=== PATIENT | female | born 1965 | race Caucasian/White ===

== ENCOUNTER 2021-03-29 12:02 | Observation (INO) ==
[2021-03-29 12:34] LABS: Basophils # (auto) 0.02 K/uL (0-0.2); Basophils % (auto) 0.3 %; Eosinophils # (auto) 0.11 K/uL (0-0.5); Eosinophils % (auto) 1.6 %; Hematocrit (blood only) 33.3 % (37-47); Hemoglobin 10.9 g/dL (12.0-16.0); Immature Granulocytes # (auto) 0.02 K/uL (0.00-0.02); Immature Granulocytes % (auto) 0.3 %; Lymphocytes # (auto) 1.83 K/uL (1.2-3.4); Lymphocytes % (auto) 26.1 %; Mean Corpuscular Hemoglobin 21.5 pg (25-34); Mean Corpuscular Hgb Conc 32.7 g/dL (32-36); Mean Corpuscular Volume 65.8 fL (80-100); Mean Platelet Volume 10.3 fL (7.4-10.4); Monocytes # (auto) 0.51 K/uL (0.11-0.59); Monocytes % (auto) 7.3 %; Neutrophils # (auto) 4.52 K/uL (1.4-6.5); Neutrophils % (auto) 64.4 %; Platelet Count 274 K/uL (130-400); RDW Coefficient of Variation 16.1 % (11.5-14.5); RDW Standard Deviation 37.5 fL (36.4-46.3); Red Blood Count 5.06 M/uL (4.2-5.4); White Blood Count 7.01 K/uL (4.8-10.8)
[2021-03-29 12:54] LABS: Hypochromasia Present; Microcytosis Present; Poikilocytosis Present; Target Cells 1+
[2021-03-29 12:58] LABS: Alanine Aminotransferase 73 U/L (12-78); Albumin Globulin Ratio 1.2 (0.9-2); Albumin Level 4.1 gm/dl (3.4-5.0); Alkaline Phosphatase 108 U/L (45-117); Aspartate Aminotransferase 42 U/L (15-37); BUN Creatinine Ratio 18.6 (10-20); Bilirubin,Total 1.1 mg/dl (0.2-1); Blood Urea Nitrogen 11 mg/dl (7-18); Calcium 9.6 mg/dl (8.5-10.1); Carbon Dioxide 23 mmol/L (21-32); Chloride 106 mmol/L (98-107); Creatinine Clr Calc Pharmacy 105.3 ml/min; Est GFR (Non-African American) 105.2 ml/min; Globulin 3.3 gm/dl (2.5-4.0); Glucose 83 mg/dl (70-99); Lipase 60 U/L (73-393); Sodium 139 mmol/L (136-145); Total Protein 7.4 gm/dl (6.4-8.2); Troponin I < 0.015 ng/ml (0-0.045)
[2021-03-29] MEDS ORDERED: ONDANSETRON INJ 2 MG/ML 2 ML VIAL IV STA (15:22)
--- NOTE | 2021-03-29 15:24 | Emergency Department Note ---
History of Present Illness General Chief complaint: Chest Pain Stated complaint: CHEST PAIN,ARM PAIN--EKG TEST AND STRESS TEST REQ Time Seen by Provider: 03/29/21 15:10 History of Present Illness Maximum Pain Intensity: 2 This is a 55-year-old female with a past medical history significant for that of thalassemia trait, recent cholecystectomy that presents to the emergency department via private vehicle with complaints of"chest pain, left arm pain, abdominal pain". The patient states that she has had vomiting over the past few days. She has been on a different diet secondary to her cholecystectomy. She notes a decrease in red meat and dark greens. She states that yesterday she felt as though she was kicked in her chest followed by left arm pain. She initially presented here however not that there was a very long wait time and presented to [facility] and had an EKG and then followed up this morning with her PCP. She was referred here for further evaluation and management. The patient notes that she has had difficulty eating over the past three days. She also notes that she thinks she may have had a heart attack yesterday around 3-4 PM when she felt like she was kicked in the chest. No chest pain at this time. Home Medications Medication Instructions Recorded Confirmed Type sertraline 100 mg tablet 100 mg PO QAM 01/26/21 03/29/21 History albuterol sulfate 90 mcg/actuation 2 puff INHALATION Q6H PRN 03/29/21 03/29/21 History aerosol inhaler celecoxib 200 mg capsule 200 mg PO DAILY 03/29/21 03/29/21 History Allergies Allergy/AdvReac Type Severity Reaction Status Date / Time ceftriaxone Allergy Intermediate RASH Verified 01/31/21 05:47 Past Med/Surg History Medical History Anxiety Beta thalassemia trait Seen by mina 10/25/20- Hgb stable since 2005 - was referred to [facility] for further evaluation if fatigue and chronic pain related to beta thalassemia trait Cervical cancer Chronic anemia Chronic obstructive pulmonary disease Polyarthralgia Stroke 15 yrs ago, incidental finding on MRI Surgical History History of cholecystectomy Hx of section Hx of laparoscopy ovarian cyst removal Hx of tubal ligation Social History Smoking Status: Former smoker Tobacco Type: Cigarettes Smoking End Date: 12/2020. Had smoked 1ppd x 40 years; Second Hand Exposure: No; Hx Alcohol Use: No Hx Substance Use: Yes Non-Prescribed Medications: Marijuana Last Used Substance Other:: medical hermila Preferred Language: Slovak Communication Ability: Effective Beliefs That Will Affect Care: None Current Living Situation: Alone and Family Feels Safe at Home: Yes Review of Systems A total of 10 systems reviewed and were otherwise negative Physical Exam Vital Signs Vital Signs - 24 hr 03/29/21 12:02 03/29/21 12:05 03/29/21 12:09 Temperature 36.8 C Temperature Source Skin Pulse Rate 83 70 Pulse Rate [Apical] Respiratory Rate 18 18 Blood Pressure 117/72 Blood Pressure [Right Arm] Blood Pressure Mean 87 Blood Pressure Mean [Right Arm] Pulse Oximetry 98 98 Oxygen Delivery Method Room Air Room Air Sepsis Recent Fever Within 48 Hours No Sepsis New/Unexplained Change in Mental Status No Sepsis Action Taken by Nursing No Action Required 03/29/21 15:26 Temperature 37 C Temperature Source Oral Pulse Rate Pulse Rate [Apical] 70 Respiratory Rate 18 Blood Pressure Blood Pressure [Right Arm] 125/95 Blood Pressure Mean Blood Pressure Mean [Right Arm] 105 Pulse Oximetry 98 Oxygen Delivery Method Room Air Sepsis Recent Fever Within 48 Hours Sepsis New/Unexplained Change in Mental Status Sepsis Action Taken by Nursing VITAL SIGNS - Vital signs and nursing notes were reviewed. Stable and afebrile. GENERAL - 55-year-old female appearing her stated age who is in no acute distress. Communicates well with provider and answers questions appropriately. SKIN - Without rashes. No meningeal or particular rash. HEAD - NC/AT. EYES - PERRL with EOMI bilaterally. Sclera anicteric. EARS - No deformities of external structures noted on gross examination bilaterally. NOSE - Midline and without cyanosis. No epistaxis or purulent drainage noted. MOUTH/OROPHARYNX - Without perioral cyanosis. NECK - Neck with FROM. . No nuchal rigidity. LUNGS - Chest wall symmetric without accessory muscle use, intercostals retractions, or central cyanosis. Normal vesicular breath sounds CTA B/L. No wheezes, rales, or rhonchi appreciated. CARDIAC - RRR with S1/S2. No murmur, rubs, or gallops appreciated. ABDOMEN - Abdominal contour normal without pulsations or visible masses. BS normoactive all four quadrants. Diffuse abdominal tenderness. Abdomen is soft and non-rigid. No palpable masses, hepatosplenomegaly, or ascites noted. EXTREMITIES - No clubbing or peripheral cyanosis. +5/5 strength noted in UE/LE bilaterally. NEUROLOGIC - Cranial nerves II through XII grossly intact. PSYCH - A&Ox3 and cooperates fully with examiner. Pt is very pleasant and interacts well with examiner. Course Administered Medications Discontinued Medications Ioversol (Optiray 320 125ml) 115 ml IV ONCE ONE Stop: 03/29/21 15:53 Last Admin: 03/29/21 15:52 Dose: 115 ml Documented by: [id number] Ondansetron HCl (Ondansetron Inj 2 Mg/Ml 2 Ml Vial) 4 mg IV NOW STA Stop: 03/29/21 15:23 Last Admin: 03/29/21 15:57 Dose: 4 mg Documented by: [id number] Medical Decision Making Laboratory Data Result diagrams: 03/29/21 12:20 03/29/21 12:20 Lab Results 03/29/21 03/29/21 03/29/21 Range/Units 12:20 12:20 12:20 WBC 7.01 (4.8-10.8) K/uL RBC 5.06 (4.2-5.4) M/uL Hgb 10.9 L (12.0-16.0) g/dL Hct 33.3 L (37-47) % MCV 65.8 L (80-100) fL MCH 21.5 L (25-34) pg MCHC 32.7 (32-36) g/dL RDW Std Deviation 37.5 (36.4-46.3) fL RDW Coeff of Tony 16.1 H (11.5-14.5) % Plt Count 274 (130-400) K/uL MPV 10.3 (7.4-10.4) fL Immature Gran % (Auto) 0.3 % Neut % (Auto) 64.4 % Lymph % (Auto) 26.1 % Gillespie % (Auto) 7.3 % Eos % (Auto) 1.6 % Baso % (Auto) 0.3 % Neut # (Auto) 4.52 (1.4-6.5) K/uL Lymph # (Auto) 1.83 (1.2-3.4) K/uL Gillespie # (Auto) 0.51 (0.11-0.59) K/uL Eos # (Auto) 0.11 (0-0.5) K/uL Baso # (Auto) 0.02 (0-0.2) K/uL Immature Gran # (Auto) 0.02 (0.00-0.02) K/uL Hypochromasia Present Poikilocytosis Present Microcytosis Present Target Cells 1+ APTT 27.0 (21.0-31.0) Seconds PTT Ratio 1.0 Sodium 139 (136-145) mmol/L Potassium 4.0 (3.5-5.1) mmol/L Chloride 106 (98-107) mmol/L Carbon Dioxide 23 (21-32) mmol/L Anion Gap 9.0 (3-11) BUN 11 (7-18) mg/dl Creatinine 0.58 L (0.6-1.2) mg/dl Est Cr Clr Drug Dosing 105.3 ml/min Est GFR ( Amer) 122.0 ml/min Est GFR (Non-Af Amer) 105.2 ml/min BUN/Creatinine Ratio 18.6 (10-20) Glucose 83 (70-99) mg/dl Calcium 9.6 (8.5-10.1) mg/dl Total Bilirubin 1.1 H (0.2-1) mg/dl AST 42 H (15-37) U/L ALT 73 (12-78) U/L Alkaline Phosphatase 108 (45-117) U/L Troponin I < 0.015 (0-0.045) ng/ml Total Protein 7.4 (6.4-8.2) gm/dl Albumin 4.1 (3.4-5.0) gm/dl Globulin 3.3 (2.5-4.0) gm/dl Albumin/Globulin Ratio 1.2 (0.9-2) Lipase 60 L (73-393) U/L HCG, Qual (Negative) Urine Color Urine Appearance (Clear) Urine pH (4.5-7.5) Ur Specific Brewster (1.000-1.030) Urine Protein (Negative) Urine Glucose (UA) (Negative) Urine Ketones (Negative) Urine Blood (Negative) Urine Nitrite (Negative) Urine Bilirubin (Negative) Urine Urobilinogen (Negative) Ur Leukocyte Esterase (Negative) COVID-19 Eval Order 03/29/21 03/29/21 03/29/21 Range/Units 15:27 16:09 16:29 WBC (4.8-10.8) K/uL RBC (4.2-5.4) M/uL Hgb (12.0-16.0) g/dL Hct (37-47) % MCV (80-100) fL MCH (25-34) pg MCHC (32-36) g/dL RDW Std Deviation (36.4-46.3) fL RDW Coeff of Tony (11.5-14.5) % Plt Count (130-400) K/uL MPV (7.4-10.4) fL Immature Gran % (Auto) % Neut % (Auto) % Lymph % (Auto) % Gillespie % (Auto) % Eos % (Auto) % Baso % (Auto) % Neut # (Auto) (1.4-6.5) K/uL Lymph # (Auto) (1.2-3.4) K/uL Gillespie # (Auto) (0.11-0.59) K/uL Eos # (Auto) (0-0.5) K/uL Baso # (Auto) (0-0.2) K/uL Immature Gran # (Auto) (0.00-0.02) K/uL Hypochromasia Poikilocytosis Microcytosis Target Cells APTT (21.0-31.0) Seconds PTT Ratio Sodium (136-145) mmol/L Potassium (3.5-5.1) mmol/L Chloride (98-107) mmol/L Carbon Dioxide (21-32) mmol/L Anion Gap (3-11) BUN (7-18) mg/dl Creatinine (0.6-1.2) mg/dl Est Cr Clr Drug Dosing ml/min Est GFR ( Amer) ml/min Est GFR (Non-Af Amer) ml/min BUN/Creatinine Ratio (10-20) Glucose (70-99) mg/dl Calcium (8.5-10.1) mg/dl Total Bilirubin (0.2-1) mg/dl AST (15-37) U/L ALT (12-78) U/L Alkaline Phosphatase (45-117) U/L Troponin I (0-0.045) ng/ml Total Protein (6.4-8.2) gm/dl Albumin (3.4-5.0) gm/dl Globulin (2.5-4.0) gm/dl Albumin/Globulin Ratio (0.9-2) Lipase (73-393) U/L HCG, Qual Negative (Negative) Urine Color Yellow Urine Appearance Clear (Clear) Urine pH 6.5 (4.5-7.5) Ur Specific Brewster 1.007 (1.000-1.030) Urine Protein Negative (Negative) Urine Glucose (UA) Negative (Negative) Urine Ketones 2+ H (Negative) Urine Blood Negative (Negative) Urine Nitrite Negative (Negative) Urine Bilirubin Negative (Negative) Urine Urobilinogen Negative (Negative) Ur Leukocyte Esterase Negative (Negative) COVID-19 Eval Order Covid19 at [facility] Imaging Data Radiologist's Impression: Abdomen/Pelvis CT 03/29/21 15:22 CT SCAN OF THE ABDOMEN AND PELVIS WITH IV CONTRAST CLINICAL HISTORY: Generalized abdominal pain. COMPARISON STUDY: Abdominal radiographs and ultrasound dated 01/02/2021. TECHNIQUE: Following the IV administration of 115 cc of Optiray 320, CT scan of the abdomen and pelvis is performed from the lung bases to the proximal femora. Images are reviewed in the axial, sagittal, and coronal planes. IV contrast was administered without complication. A dose lowering technique was utilized adhering to the principles of ALARA. FINDINGS: Lung bases: The heart is normal in size and without pericardial effusion. There are scattered calcified granulomas. The lung bases are otherwise clear. Liver: The contrast-enhanced liver is normal in size, contour, and attenuation. Fatty infiltration is seen adjacent to the falciform ligament. There is minimal central intrahepatic biliary ductal dilatation. The hepatic veins and portal veins are patent. Gallbladder: Surgically absent noting clips in the gallbladder fossa. Spleen: Normal in size and attenuation. There are scattered calcified granulomas. Pancreas: Unremarkable. Adrenal glands: Unremarkable. Kidneys: The contrast enhanced kidneys are normal in size and without hydronephrosis. The kidneys enhance symmetrically. Abdominal vasculature: The abdominal aorta is normal in course and caliber. Bowel: There is moderate colonic fecal retention. No bowel obstruction is seen liquid stool is seen in the right colon.. The appendix is not visualized. Peritoneum: There is no intraperitoneal free air or abdominal ascites. Lymphadenopathy: None. Pelvic viscera: The bladder wall appears circumferentially thickened. There is an approximately 6.5 x 7.5 x 7.5 cm heterogeneously enhancing mass lesion at the base of the uterus seen on image #307. The remainder of the uterus is normal in appearance. There is a 2.1 cm fat attenuation structure in the right pelvis with surrounding suture material. Skeletal structures: No lytic or blastic lesions are seen. IMPRESSION: 1. The bladder wall appears circumferentially thickened. Correlate with clinical findings and urinalysis. 2. There is a 7.5 cm heterogeneously enhancing mass lesion at the base of the uterus. This is pathologically indeterminant and may represent a large fibroid. Given the location, a cervical lesion is not excluded. Gynecology follow-up is recommended. 3. There is a 2.1 cm fat attenuation structure in the right pelvis with surrounding suture material. This may represent postoperative change. A fat- containing lesion such as dermoid is not excluded. Correlate with the patient's operative history. This should also be assessed at gynecology follow-up. 4. Liquid stool is noted in the right colon. Correlate for evidence of a diarrheal illness. 5. Moderate constipation. 6. Additional findings as above. ACT 112: Negative or not required by law. Electronically signed by: Mark Willis M.D. 03/29/2021 4:08 PM Chest CTA 03/29/21 15:22 CT angio chest PE protocol CT DOSE: 549.26 mGy.cm HISTORY: 55 years-old Female with chest pain. Acute chest pain with shortness of breath TECHNIQUE: Multiple CTA images of the chest were obtained after the intravenous administration of 115 ml Optiray. Coronal and sagittal MIPS were obtained from the axial data set and were submitted for review. All measurements were obtained according to NASCET criteria. A dose lowering technique was utilized adhering to the principles of ALARA. COMPARISON: CT abdomen and pelvis of same day, chest radiograph 03/08/2013 FINDINGS: CTA: The heart is normal in size. No pericardial effusion. Unremarkable thoracic aorta. The pulmonary artery is within normal limits. No filling defects identified to suggest thromboembolic disease. CT CHEST: Subcentimeter hypodense right thyroid nodules. Calcified mediastinal and hilar lymph nodes compatible with prior granulomatous disease. No pneumothorax, pleural effusion, airspace consolidation or overt pulmonary edema. Tiny subpleural blebs of the lung apices. Scattered calcified pulmonary granulomata. No suspicious pulmonary nodules or masses. The central airways are patent. Cholecystectomy. No acute process of the imaged upper abdomen. Unremarkable soft tissues. No acute fracture. IMPRESSION: 1. Unremarkable CTA of the chest. No pulmonary emboli. 2. Prior granulomatous disease. ACT 112: Negative or not required by law. The above report was generated using voice recognition software. It may contain grammatical, syntax or spelling errors. Electronically signed by: Miquel Rivas M.D. 03/29/2021 4:00 PM [facility] Narrative Patient was seen and evaluated as above in room in room B 12. Review was performed of nursing notes and vital signs. I did review pertinent previous visits and patient history. After obtaining a thorough history and physical examination the above work up was performed. Patient presents to us today with an episode yesterday of chest pain, left arm pain. No pain at the present time. Patient also notes vomiting over the past few days. She felt like she was kicked in the chest yesterday followed by left arm pain. She is non-toxic on exam at this time. Vital signs stable. Options of care were discussed with the patient. IV access was established. Labs were drawn. EKG reveals normal sinus rhythm at a rate of 75 bpm. No ectopy or ischemic change. No ST elevation. QTC 435. QRS 84. This was compared EKG January 02, 2021 and no significant change was found. There is no leukocytosis. Anemia noted with hemoglobin of 10.9. This is actually improved compared to previous. No emergent metabolic disturbance. T Teofilo 1.1. AST 42. Lipase not elevated. HCG negative. Urine does not suggest infection. CT scan of the chest and abdomen were obtained noting her symptoms. CTA is negative for acute process. Abdomen as above. Follow-up is indicated. At this time given the patient's symptoms that she had yesterday it is felt that further evaluation and management is warranted in the inpatient setting. Case discussed with the hospitalist. Please refer to further documentation regarding her stay here in the hospital. GCS: 15 In the evaluation and treatment of this patient, the following differential diagnoses were considered: NE, ASC, Dysrhythmia, Angina, Mediastinitis, GERD, Esophagitis, PE, Pneumonia, Bronchitis, Costochondritis, Rib Fracture, Zoster, acute abdomen, malignancy, among others. Impression & Plan Chest pain, Abnormal CT of the abdomen, Chronic anemia, Urinary frequency Discharge Plan Visit Data Chief Complaint: Chest Pain Stated Complaint: CHEST PAIN,ARM PAIN--EKG TEST AND STRESS TEST REQ ED Provider: Marvin Killian ED Midlevel Provider: Liam Syed Discharge Problem: Chest pain, Abnormal CT of the abdomen, Chronic anemia, Urinary frequency Patient Disposition: Admitted As Inpatient Condition: Good Forms Stand Alone Forms: [facility] [employer] Prescriptions Prescriptions: No Action sertraline 100 mg Tablet 100 mg PO QAM RF: 0 celecoxib 200 mg capsule 200 mg PO DAILY RF: 0 albuterol sulfate 90 mcg/actuation HFA aerosol inhaler 2 puff INHALATION Q6H PRN (Reason: Shortness Of Breath Or Wheezing) RF: 0 Referrals Referrals: Alexi Sparks DO [Primary Care Provider] -
[2021-03-29] MEDS ORDERED: OPTIRAY 320 125ml IV ONE (15:52)
--- NOTE | 2021-03-29 16:04 | History & Physical Report ---
Date of Service March 29, 2021 Assessment & Plan (1) Chest pain: Plan: Patient is 55-year-old female with PMH beta thalassemia trait, polyarthralgia, cervical cancer, COPD, anxiety, former tobacco use presented to ER with complaint of chest pain and left arm pain yesterday occurred after vomiting. Today in ER EKG with acute ST elevation. Negative troponin. Pt is currently without CP. CTA chest No PE. R/O ACS. Risk factors: tobacco use, FH May be musculoskeletal etiology -Monitor Vitals -Repeat EKG in am -Will trend troponin -Echo -lipid panel in am -ASA -Nitro prn CP and repeat EKG for CP -NPO midnight (2) Nausea and vomiting: Plan: Constipation Nausea, Vomiting x 2 days No bowel obstruction seen on CT Abd/pelvis -Liquid diet -Miralax now and prn -IVF (3) Abnormal CT of the abdomen: Plan: CT ABD/PELVIS: IMPRESSION: 1. The bladder wall appears circumferentially thickened. Correlate with clinical findings and urinalysis. 2. There is a 7.5 cm heterogeneously enhancing mass lesion at the base of the uterus. This is pathologically indeterminant and may represent a large fibroid. Given the location, a cervical lesion is not excluded. Gynecology follow-up is recommended. 3. There is a 2.1 cm fat attenuation structure in the right pelvis with surrounding suture material. This may represent postoperative change. A fat- containing lesion such as dermoid is not excluded. Correlate with the patient's operative history. This should also be assessed at gynecology follow-up. 4. Liquid stool is noted in the right colon. Correlate for evidence of a diarrheal illness. 5. Moderate constipation. 6. Additional findings as above. Bladder thickening - UA unremarkable Lesion at base of uterus - Pt will need [facility] follow up 2.1 cm fat attenuation structure in the right pelvis with surrounding suture material. H/O tubal ligation. Follow up with [facility] [facility] (4) Beta thalassemia trait: (5) Chronic anemia: Plan: Hgb: 10.9. At baseline (6) Chronic obstructive pulmonary disease: Plan: Continue albuterol as needed (7) Anxiety: Plan: Continue sertraline (8) Polyarthralgia: Plan: Current work up with [facility]ology Hold Celebrex for now with current GI upset DVT Prophylaxis -SCDs Full Code as per discussion with pt Follows with Dr Sparks for routine care Pt was seen and care coordinated with Dr Raymond. See addendum History of Present Illness Chief Complaint: CP Primary Care Provider: Alexi Sparks DO Patient is 55-year-old female with PMH beta thalassemia trait, polyarthralgia, cervical cancer, COPD, anxiety, former tobacco use presented to ER with complaint of chest pain yesterday. Patient reports yesterday with sharp chest pain and left arm pain that occurred after vomiting. Left arm feels better today and no chest pain today. Denies SOB. She reports nausea and vomiting x2 days. No vomiting today. Hasn't been drinking or eating past day and feels dizzy with st anding and concerned she is dehydrated. Patient left ER without being seen yesterday 03/28/2021. She then went to [facility] and reports had EKG which was reported as okay. Patient followed up with PCP today and patient was concerned she had a heart attack and did not want outpatient stress testing so she presented to ER today for further evaluation. reports chronic urinary frequency and urinates once an hour. Denies dysuria, hematuria. History cholecystectomy 01/31/21 and reports has been doing well since and is following low fat diet and trying to eat a lot of leafy greens. History tubal ligation. Yesterday small hard bowel movement. Denies fever/chills, diaphoresis, hematemesis, melena, hematochezia, GRAHAM, syncope, vision changes, neck pain, orthopnea, palpitations, cough, sore throat, choking, otalgia, rhinorrhea, abdominal pain, paresthesias, weakness, extremity weakness, extremity edema, rashes. LMP 7 months ago Today in ER EKG with acute ST elevation. Negative troponin. Pt is currently without CP. CTA chest No PE. Allergies Allergy/AdvReac Type Severity Reaction Status Date / Time ceftriaxone Allergy Intermediate RASH Verified 01/31/21 05:47 Home Medications Medication Instructions Recorded Confirmed Type sertraline 100 mg tablet 100 mg PO QAM 01/26/21 03/29/21 History albuterol sulfate 90 mcg/actuation 2 puff INHALATION Q6H PRN 03/29/21 03/29/21 History aerosol inhaler celecoxib 200 mg capsule 200 mg PO DAILY 03/29/21 03/29/21 History Past Med/Surg History Medical History Anxiety Beta thalassemia trait Seen by mina 10/25/20- Hgb stable since 2005 - was referred to [facility] for further evaluation if fatigue and chronic pain related to beta thalassemia trait Cervical cancer Chronic anemia Chronic obstructive pulmonary disease Polyarthralgia Stroke 15 yrs ago, incidental finding on MRI Surgical History History of cholecystectomy Hx of section Hx of laparoscopy ovarian cyst removal Hx of tubal ligation Social History Smoking Status: Former smoker Tobacco Type: Cigarettes Smoking End Date: 12/2020. Had smoked 1ppd x 40 years; Second Hand Exposure: No; Do You Dip or Chew Tobacco: No; Tobacco Cessation Education Requested by Patient: No Hx Alcohol Use: No Hx Substance Use: Yes Non-Prescribed Medications: Marijuana Last Used Substance Other:: medical marijuanna Substance Use Type Other:: medical marijuana Preferred Language: Frisian Communication Ability: Effective Beliefs That Will Affect Care: None Current Living Situation: Spouse and Family Other Information That Helps Us Care for You: No Feels Safe at Home: Yes Safety Concerns: Feels Safe At This Time Assistive Devices: None Review of Systems Review of Systems: All systems reviewed & are unremarkable except as noted in HPI & below Physical Exam Physical Exam: General: no distress, WDWN Head: normocephalic, atraumatic Eyes: PERRL, EOM's intact, conjunctiva non-injected, anicteric ENT: normal inspection external ears, nose, mucous membranes dry Neck: supple, trachea midline Lungs: clear, no respiratory distress, no wheezing/rhonchi/rales CV: RRR, no murmur, no pretibial edema; chest wall without ecchymosis or rashes. +tenderness to palpation left anterior chest wall Abd: healed surgical incision RUQ, umbilicus, normal BS, soft, + tenderness to palpation RLQ, LLQ without rebound or guarding Ext: no cyanosis, no calf tenderness Neuro: A&O x 3, no focal deficits noted, normal affect Skin: warm, dry Results & Data Results & Data ([facility]) Vital Signs (Past 12 Hours) Vital Signs Temp Pulse Pulse Resp BP BP Pulse Ox 03/29/21 15:26 37 C 70 18 125/95 98 03/29/21 12:09 70 18 98 03/29/21 12:05 36.8 C 83 18 117/72 98 Laboratory Results Short CBC 03/29/21 Range/Units 12:20 WBC 7.01 (4.8-10.8) K/uL Hgb 10.9 L (12.0-16.0) g/dL Hct 33.3 L (37-47) % Plt Count 274 (130-400) K/uL BMP 03/29/21 12:20 Sodium 139 Potassium 4.0 Chloride 106 Carbon Dioxide 23 BUN 11 Creatinine 0.58 L Glucose 83 Calcium 9.6 Cardiac Enzymes 03/29/21 Range/Units 12:20 Troponin I < 0.015 (0-0.045) ng/ml Liver Function 03/29/21 Range/Units 12:20 Total Bilirubin 1.1 H (0.2-1) mg/dl AST 42 H (15-37) U/L ALT 73 (12-78) U/L Alkaline Phosphatase 108 (45-117) U/L Albumin 4.1 (3.4-5.0) gm/dl Diagnostic Findings Abdomen/Pelvis CT 03/29/21 15:22 CT SCAN OF THE ABDOMEN AND PELVIS WITH IV CONTRAST CLINICAL HISTORY: Generalized abdominal pain. COMPARISON STUDY: Abdominal radiographs and ultrasound dated 01/02/2021. TECHNIQUE: Following the IV administration of 115 cc of Optiray 320, CT scan of the abdomen and pelvis is performed from the lung bases to the proximal femora. Images are reviewed in the axial, sagittal, and coronal planes. IV contrast was administered without complication. A dose lowering technique was utilized adhering to the principles of ALARA. FINDINGS: Lung bases: The heart is normal in size and without pericardial effusion. There are scattered calcified granulomas. The lung bases are otherwise clear. Liver: The contrast-enhanced liver is normal in size, contour, and attenuation. Fatty infiltration is seen adjacent to the falciform ligament. There is minimal central intrahepatic biliary ductal dilatation. The hepatic veins and portal veins are patent. Gallbladder: Surgically absent noting clips in the gallbladder fossa. Spleen: Normal in size and attenuation. There are scattered calcified granulomas. Pancreas: Unremarkable. Adrenal glands: Unremarkable. Kidneys: The contrast enhanced kidneys are normal in size and without hydronephrosis. The kidneys enhance symmetrically. Abdominal vasculature: The abdominal aorta is normal in course and caliber. Bowel: There is moderate colonic fecal retention. No bowel obstruction is seen liquid stool is seen in the right colon.. The appendix is not visualized. Peritoneum: There is no intraperitoneal free air or abdominal ascites. Lymphadenopathy: None. Pelvic viscera: The bladder wall appears circumferentially thickened. There is an approximately 6.5 x 7.5 x 7.5 cm heterogeneously enhancing mass lesion at the base of the uterus seen on image #307. The remainder of the uterus is normal in appearance. There is a 2.1 cm fat attenuation structure in the right pelvis with surrounding suture material. Skeletal structures: No lytic or blastic lesions are seen. IMPRESSION: 1. The bladder wall appears circumferentially thickened. Correlate with clinical findings and urinalysis. 2. There is a 7.5 cm heterogeneously enhancing mass lesion at the base of the uterus. This is pathologically indeterminant and may represent a large fibroid. Given the location, a cervical lesion is not excluded. Gynecology follow-up is recommended. 3. There is a 2.1 cm fat attenuation structure in the right pelvis with surro unding suture material. This may represent postoperative change. A fat- containing lesion such as dermoid is not excluded. Correlate with the patient's operative history. This should also be assessed at gynecology follow-up. 4. Liquid stool is noted in the right colon. Correlate for evidence of a diarrheal illness. 5. Moderate constipation. 6. Additional findings as above. ACT 112: Negative or not required by law. Electronically signed by: Mark Willis M.D. 03/29/2021 4:08 PM Chest CTA 03/29/21 15:22 CT angio chest PE protocol CT DOSE: 549.26 mGy.cm HISTORY: 55 years-old Female with chest pain. Acute chest pain with shortness of breath TECHNIQUE: Multiple CTA images of the chest were obtained after the intravenous administration of 115 ml Optiray. Coronal and sagittal MIPS were obtained from the axial data set and were submitted for review. All measurements were obtained according to NASCET criteria. A dose lowering technique was utilized adhering to the principles of ALARA. COMPARISON: CT abdomen and pelvis of same day, chest radiograph 03/08/2013 FINDINGS: CTA: The heart is normal in size. No pericardial effusion. Unremarkable thoracic aorta. The pulmonary artery is within normal limits. No filling defects identified to suggest thromboembolic disease. CT CHEST: Subcentimeter hypodense right thyroid nodules. Calcified mediastinal and hilar lymph nodes compatible with prior granulomatous disease. No pneumothorax, pleural effusion, airspace consolidation or overt pulmonary edema. Tiny subpleural blebs of the lung apices. Scattered calcified pulmonary granulomata. No suspicious pulmonary nodules or masses. The central airways are patent. Cholecystectomy. No acute process of the imaged upper abdomen. Unremarkable soft tissues. No acute fracture. IMPRESSION: 1. Unremarkable CTA of the chest. No pulmonary emboli. 2. Prior granulomatous disease. ACT 112: Negative or not required by law. The above report was generated using voice recognition software. It may contain grammatical, syntax or spelling errors. Electronically signed by: Miquel Rivas M.D. 03/29/2021 4:00 PM ECG Rate (beats per minute): 75 Rhythm: sinus rhythm Supervising Physician Co-Signing Physician Notes Patient seen and examined by me, care coordinated with KETAN Larry, please refer to her note above for further detail. 55 y/o female with beta thalassemia trait, polyarthralgia, cervical cancer, COPD, anxiety, former tobacco use presented to ER with complaint of chest pain radiating to left arm. Chest pain felt as pressure but now resolved. associated w/ nausea vomiting, and feeling lightheaded. Was seen by PCP today who recommended outpatient stress test however patient then presented to ED for further evaluation. Initial work-up in ED negative. Patient is currently sitting up in bed, in no acute distress. She is alert oriented and answering questions appropriately. Currently only reports some left arm discomfort, no chest pain or shortness of breath. Reports not eating for past 2 days due to vomiting and nausea. Heart sounds is regular. Breath sounds clear to auscultation bilaterally with any wheezing rhonchi or crackles. Abdomen soft, nontender nondistended. No lower extremity edema noted. Skin is warm dry and well-perfused. We will trend troponins overnight. Repeat EKG in the morning, and if reports chest pain. Will obtain echocardiogram and further discuss with cardiology if stress test is recommended. Nico Raymond MD
--- NOTE | 2021-03-29 16:09 | CT Scan Report ---
CT SCAN OF THE ABDOMEN AND PELVIS WITH IV CONTRAST CLINICAL HISTORY: Generalized abdominal pain. COMPARISON STUDY: Abdominal radiographs and ultrasound dated 01/02/2021. TECHNIQUE: Following the IV administration of 115 cc of Optiray 320, CT scan of the abdomen and pelv is is performed from the lung bases to the proximal femora. Images are reviewed in the axial, sagitta l, and coronal planes. IV contrast was administered without complication. A dose lowering technique w as utilized adhering to the principles of ALARA. FINDINGS: Lung bases: The heart is normal in size and without pericardial effusion. There are scattered calcifi ed granulomas. The lung bases are otherwise clear. Liver: The contrast-enhanced liver is normal in size, contour, and attenuation. Fatty infiltration is seen adjacent to the falciform ligament. There is minimal central intrahepatic biliary ductal dilata tion. The hepatic veins and portal veins are patent. Gallbladder: Surgically absent noting clips in the gallbladder fossa. Spleen: Normal in size and attenuation. There are scattered calcified granulomas. Pancreas: Unremarkable. Adrenal glands: Unremarkable. Kidneys: The contrast enhanced kidneys are normal in size and without hydronephrosis. The kidneys enh ance symmetrically. Abdominal vasculature: The abdominal aorta is normal in course and caliber. Bowel: There is moderate colonic fecal retention. No bowel obstruction is seen liquid stool is seen i n the right colon.. The appendix is not visualized. Peritoneum: There is no intraperitoneal free air or abdominal ascites. Lymphadenopathy: None. Pelvic viscera: The bladder wall appears circumferentially thickened. There is an approximately 6.5 x 7.5 x 7.5 cm heterogeneously enhancing mass lesion at the base of the uterus seen on image #307. The remainder of the uterus is normal in appearance. There is a 2.1 cm fat attenuation structure in the right pelvis with surrounding suture material. Skeletal structures: No lytic or blastic lesions are seen. IMPRESSION: 1. The bladder wall appears circumferentially thickened. Correlate with clinical findings and urinaly sis. 2. There is a 7.5 cm heterogeneously enhancing mass lesion at the base of the uterus. This is patholo gically indeterminant and may represent a large fibroid. Given the location, a cervical lesion is not excluded. Gynecology follow-up is recommended. 3. There is a 2.1 cm fat attenuation structure in the right pelvis with surrounding suture material. This may represent postoperative change. A fat-containing lesion such as dermoid is not excluded. Cor relate with the patient's operative history. This should also be assessed at gynecology follow-up. 4. Liquid stool is noted in the right colon. Correlate for evidence of a diarrheal illness. 5. Moderate constipation. 6. Additional findings as above. ACT 112: Negative or not required by law. Electronically signed by: Mark Willis M.D. 03/29/2021 4:08 PM
[2021-03-29 16:21] LABS: Appearance Urine Clear (Clear); Bilirubin Urine Negative (Negative); Blood Urine Negative (Negative); Color Urine Yellow; Glucose Urine UA Negative (Negative); Ketones Urine 2+ (Negative); Leukocyte Esterase Urine Negative (Negative); Nitrite Urine Negative (Negative); Protein Urine Negative (Negative); Specific Gravity Urine 1.007 (1.000-1.030); Urobilinogen Urine Negative (Negative); pH Urine 6.5 (4.5-7.5)
[2021-03-29 17:11] LABS: Pregnancy Test, Serum Negative (Negative)
[2021-03-29] MEDS ORDERED: bisacodyL 10 MG SUPP PR ONE (17:13)
[2021-03-29] MEDS ORDERED: ASPIRIN 81 MG CHEW PO STA (17:17)
[2021-03-29] MEDS ORDERED: ACETAMINOPHEN 325 MG TAB ONE (19:25)
[2021-03-29] MEDS ORDERED: NITROGLYCERIN SL 0.4 MG/TAB TAB SL PRN (20:45)
[2021-03-29] MEDS ORDERED: POLYETHYLENE (MIRALAX) 17 GM PACK PO ONE (20:45)
[2021-03-29] MEDS ORDERED: ACETAMINOPHEN 325 MG TAB PO PRN (20:45)
[2021-03-29] MEDS ORDERED: ALBUTEROL HFA 8 GM INHALER INH PRN (20:45)
[2021-03-29] MEDS ORDERED: SODIUM CHLORIDE 0.9% 1000ML 1,000 ML IV SCH (20:45)
[2021-03-29] MEDS ORDERED: POLYETHYLENE (MIRALAX) 17 GM PACK PO PRN (20:45)
[2021-03-29] MEDS ORDERED: MAGNESIUM HYDROXIDE SUSP 30 ML UDC PO PRN (20:45)
[2021-03-29] MEDS ORDERED: ONDANSETRON INJ 2 MG/ML 2 ML VIAL IV PRN (20:45)
--- NOTE | 2021-03-30 05:40 | Electrocardiogram Report ---
Test Reason : Blood Pressure : / mmHG Vent. Rate : 075 BPM Atrial Rate : 075 BPM P-R Int : 152 ms QRS Dur : 084 ms QT Int : 390 ms P-R-T Axes : 059 034 042 degrees QTc Int : 435 ms Normal sinus rhythm Normal ECG When compared with ECG of 02-JAN-2021 20:07, No significant change was found Confirmed by Jonathan Hampton ([id number]) on 03/30/2021 5:40:19 AM Referred By: Confirmed By:Jonathan Hampton
[2021-03-30 06:29] LABS: Hematocrit (blood only) 32.5 % (37-47); Hemoglobin 10.6 g/dL (12.0-16.0); Mean Corpuscular Hemoglobin 21.5 pg (25-34); Mean Corpuscular Hgb Conc 32.6 g/dL (32-36); Mean Corpuscular Volume 65.9 fL (80-100); Mean Platelet Volume 10.2 fL (7.4-10.4); Platelet Count 285 K/uL (130-400); RDW Standard Deviation 37.5 fL (36.4-46.3); Red Blood Count 4.93 M/uL (4.2-5.4); White Blood Count 6.78 K/uL (4.8-10.8)
[2021-03-30 07:01] LABS: BUN Creatinine Ratio 17.7 (10-20); Blood Urea Nitrogen 10 mg/dl (7-18); Calcium 9.4 mg/dl (8.5-10.1); Carbon Dioxide 24 mmol/L (21-32); Chloride 109 mmol/L (98-107); Cholesterol 227 mg/dl (0-200); Creatinine Clr Calc Pharmacy 104.3 ml/min; Est GFR (Non-African American) 105.2 ml/min; Glucose 81 mg/dl (70-99); Potassium 4.3 mmol/L (3.5-5.1); Sodium 139 mmol/L (136-145); Triglycerides 169 mg/dl (0-150); VLDL Cholesterol 34 mg/dl
[2021-03-30 07:06] LABS: Chol HDL Ratio 6; HDL Cholesterol 36 mg/dl; LDL Cholesterol Calculated 157 mg/dl; Troponin I < 0.015 ng/ml (0-0.045)
--- NOTE | 2021-03-30 07:36 | Hospitalist Progress Note ---
Date of Service March 30, 2021 Assessment & Plan (1) Chest pain: Plan: Patient is 55-year-old female with PMH beta thalassemia trait, polyarthralgia, cervical cancer, COPD, anxiety, former tobacco use presented to ER with complaint of chest pain and left arm pain yesterday occurred after vomiting. in ER EKG with acute ST elevation. Negative troponin. Pt is currently without CP. CTA chest No PE. R/O ACS. Risk factors: tobacco use, FH May be musculoskeletal etiology -Monitor Vitals -Repeat EKG in am -troponin x3 negative -Echo -LVEF 60-65%. Aortic valve is trileaflet. Aortic valve sclerosis mild, without significant aortic valvular stenosis. No aortic regurg is present. Aortic root is mildly dilated at 3.8 cm. Proximal ascending aorta is normal size. Stress echo - normal exercise stress echo. No echo or ECG evidence of myocardial ischemia having achieved heart rate adequate for diagnostic purposes. -lipid panel - LDL 157 -patient plans to follow a low-fat diet and continue to monitor -ASA (2) Nausea and vomiting: Plan: Constipation Nausea, Vomiting x 2 days No bowel obstruction seen on CT Abd/pelvis -Liquid diet -Miralax now and prn -IVF Currently patient is tolerating diet, passing gas, yesterday had suppository with a small bowel movement. No nausea vomiting at this time (3) Abnormal CT of the abdomen: Plan: CT ABD/PELVIS: IMPRESSION: 1. The bladder wall appears circumferentially thickened. Correlate with clinical findings and urinalysis. 2. There is a 7.5 cm heterogeneously enhancing mass lesion at the base of the uterus. This is pathologically indeterminant and may represent a large fibroid. Given the location, a cervical lesion is not excluded. Gynecology follow-up is recommended. 3. There is a 2.1 cm fat attenuation structure in the right pelvis with surrounding suture material. This may represent postoperative change. A fat- containing lesion such as dermoid is not excluded. Correlate with the patient's operative history. This should also be assessed at gynecology follow-up. 4. Liquid stool is noted in the right colon. Correlate for evidence of a diarrheal illness. 5. Moderate constipation. 6. Additional findings as above. Uterine mass 2.1 cm fat attenuation structure in the right pelvis with surrounding suture material. H/O tubal ligation. Discussed with the patient uterine mass findings and she is anxious about that [employer] was consulted Most likely fibroid, patient will be scheduled for further follow-up Bladder thickening - UA unremarkable Cont. outpt follow up (4) Beta thalassemia trait: (5) Chronic anemia: Plan: Hgb: 10.9. At baseline (6) Chronic obstructive pulmonary disease: Plan: Continue albuterol as needed (7) Anxiety: Plan: Continue sertraline (8) Polyarthralgia: Plan: Current work up with G rheumatology Hold Celebrex for now with current GI upset DVT Prophylaxis -SCDs Full Code as per discussion with pt Follows with Dr Sparks for routine care Admission and Anticipated Discharge Date Admission Date: March 29, 2021 Subjective Patient seen in follow-up of chest pain, nausea vomiting Currently patient is seen up in bed, in no acute distress, denies any chest pain shortness of breath palpitations dizziness Denies any nausea vomiting, tolerating diet at this time, she is passing gas Underwent stress echo earlier, which was normal. Given findings of uterine mass, gynecology was also consulted. Review of Systems Review of Systems: All systems reviewed & are unremarkable except as noted in Subjective Physical Exam Physical Exam: General: WDWN F in NAD Head: normocephalic, atraumatic Eyes: PERRL, EOM's intact, conjunctiva non-injected, anicteric ENT: normal inspection external ears, nose, mucous membranes dry Neck: supple, trachea midline Lungs: clear, no respiratory distress, no wheezing/rhonchi/rales CV: RRR, no murmur, no pretibial edema; chest wall without ecchymosis or rashes Abd: healed surgical incision RUQ, umbilicus, normal BS, soft, + minimal tenderness to palpation RLQ, LLQ without rebound or guarding Ext: no cyanosis, no calf tenderness Neuro: A&O x 3, no facial asymmetry, speech fluent, moves extremities Skin: warm, dry Results & Data Results & Data ([facility]) Vital Signs (Past 12 Hours) Vital Signs Temp Pulse Pulse Pulse Resp BP BP 03/30/21 07:34 67 03/30/21 07:19 36.8 C 73 18 106/63 03/30/21 04:22 36.9 C 78 18 102/66 03/29/21 23:34 64 03/29/21 23:00 36.7 C 71 18 107/64 03/29/21 20:12 94 H 03/29/21 20:00 37 C 61 16 104/63 Pulse Ox 03/30/21 07:34 03/30/21 07:19 97 03/30/21 04:22 98 03/29/21 23:34 03/29/21 23:00 97 03/29/21 20:12 03/29/21 20:00 98 Laboratory Results 03/30/21 03/30/21 03/29/21 Range/Units 05:50 05:50 21:37 WBC 6.78 (4.8-10.8) K/uL RBC 4.93 (4.2-5.4) M/uL Hgb 10.6 L (12.0-16.0) g/dL Hct 32.5 L (37-47) % MCV 65.9 L (80-100) fL MCH 21.5 L (25-34) pg MCHC 32.6 (32-36) g/dL RDW Std Deviation 37.5 (36.4-46.3) fL RDW Coeff of Tony 16.0 H (11.5-14.5) % Plt Count 285 (130-400) K/uL MPV 10.2 (7.4-10.4) fL Immature Gran % (Auto) % Neut % (Auto) % Lymph % (Auto) % [place] % (Auto) % Eos % (Auto) % Baso % (Auto) % Neut # (Auto) (1.4-6.5) K/uL Lymph # (Auto) (1.2-3.4) K/uL [place] # (Auto) (0.11-0.59) K/uL Eos # (Auto) (0-0.5) K/uL Baso # (Auto) (0-0.2) K/uL Immature Gran # (Auto) (0.00-0.02) K/uL Hypochromasia Poikilocytosis Microcytosis Target Cells APTT (21.0-31.0) Seconds PTT Ratio Sodium 139 (136-145) mmol/L Potassium 4.3 (3.5-5.1) mmol/L Chloride 109 H (98-107) mmol/L Carbon Dioxide 24 (21-32) mmol/L Anion Gap 7.0 (3-11) BUN 10 (7-18) mg/dl Creatinine 0.58 L (0.6-1.2) mg/dl Est Cr Clr Drug Dosing 104.3 ml/min Est GFR ( Amer) 122.0 ml/min Est GFR (Non-Af Amer) 105.2 ml/min BUN/Creatinine Ratio 17.7 (10-20) Glucose 81 (70-99) mg/dl Calcium 9.4 (8.5-10.1) mg/dl Total Bilirubin (0.2-1) mg/dl AST (15-37) U/L ALT (12-78) U/L Alkaline Phosphatase (45-117) U/L Troponin I < 0.015 < 0.015 (0-0.045) ng/ml Total Protein (6.4-8.2) gm/dl Albumin (3.4-5.0) gm/dl Globulin (2.5-4.0) gm/dl Albumin/Globulin Ratio (0.9-2) Triglycerides 169 H (0-150) mg/dl Cholesterol 227 H (0-200) mg/dl LDL Cholesterol, Calc 157 mg/dl VLDL Cholesterol, Calc 34 mg/dl HDL Cholesterol 36 mg/dl Cholesterol/HDL Ratio 6 Lipase (73-393) U/L HCG, Qual (Negative) Urine Color Urine Appearance (Clear) Urine pH (4.5-7.5) Ur Specific [place] (1.000-1.030) Urine Protein (Negative) Urine Glucose (UA) (Negative) Urine Ketones (Negative) Urine Blood (Negative) Urine Nitrite (Negative) Urine Bilirubin (Negative) Urine Urobilinogen (Negative) Ur Leukocyte Esterase (Negative) COVID-19 Eval Order SARS-CoV-2 (PCR) (Negative) 03/29/21 03/29/21 03/29/21 Range/Units 16:29 16:29 16:09 WBC (4.8-10.8) K/uL RBC (4.2-5.4) M/uL Hgb (12.0-16.0) g/dL Hct (37-47) % MCV (80-100) fL MCH (25-34) pg MCHC (32-36) g/dL RDW Std Deviation (36.4-46.3) fL RDW Coeff of Tony (11.5-14.5) % Plt Count (130-400) K/uL MPV (7.4-10.4) fL Immature Gran % (Auto) % Neut % (Auto) % Lymph % (Auto) % [place] % (Auto) % Eos % (Auto) % Baso % (Auto) % Neut # (Auto) (1.4-6.5) K/uL Lymph # (Auto) (1.2-3.4) K/uL [place] # (Auto) (0.11-0.59) K/uL Eos # (Auto) (0-0.5) K/uL Baso # (Auto) (0-0.2) K/uL Immature Gran # (Auto) (0.00-0.02) K/uL Hypochromasia Poikilocytosis Microcytosis Target Cells APTT (21.0-31.0) Seconds PTT Ratio Sodium (136-145) mmol/L Potassium (3.5-5.1) mmol/L Chloride (98-107) mmol/L Carbon Dioxide (21-32) mmol/L Anion Gap (3-11) BUN (7-18) mg/dl Creatinine (0.6-1.2) mg/dl Est Cr Clr Drug Dosing ml/min Est GFR ( Amer) ml/min Est GFR (Non-Af Amer) ml/min BUN/Creatinine Ratio (10-20) Glucose (70-99) mg/dl Calcium (8.5-10.1) mg/dl Total Bilirubin (0.2-1) mg/dl AST (15-37) U/L ALT (12-78) U/L Alkaline Phosphatase (45-117) U/L Troponin I (0-0.045) ng/ml Total Protein (6.4-8.2) gm/dl Albumin (3.4-5.0) gm/dl Globulin (2.5-4.0) gm/dl Albumin/Globulin Ratio (0.9-2) Triglycerides (0-150) mg/dl Cholesterol (0-200) mg/dl LDL Cholesterol, Calc mg/dl VLDL Cholesterol, Calc mg/dl HDL Cholesterol mg/dl Cholesterol/HDL Ratio Lipase (73-393) U/L HCG, Qual Negative (Negative) Urine Color Urine Appearance (Clear) Urine pH (4.5-7.5) Ur Specific [place] (1.000-1.030) Urine Protein (Negative) Urine Glucose (UA) (Negative) Urine Ketones (Negative) Urine Blood (Negative) Urine Nitrite (Negative) Urine Bilirubin (Negative) Urine Urobilinogen (Negative) Ur Leukocyte Esterase (Negative) COVID-19 Eval Order Covid19 at [facility] SARS-CoV-2 (PCR) NEGATIVE (Negative) 03/29/21 03/29/21 03/29/21 Range/Units 15:27 12:20 12:20 WBC (4.8-10.8) K/uL RBC (4.2-5.4) M/uL Hgb (12.0-16.0) g/dL Hct (37-47) % MCV (80-100) fL MCH (25-34) pg MCHC (32-36) g/dL RDW Std Deviation (36.4-46.3) fL RDW Coeff of Tony (11.5-14.5) % Plt Count (130-400) K/uL MPV (7.4-10.4) fL Immature Gran % (Auto) % Neut % (Auto) % Lymph % (Auto) % [place] % (Auto) % Eos % (Auto) % Baso % (Auto) % Neut # (Auto) (1.4-6.5) K/uL Lymph # (Auto) (1.2-3.4) K/uL [place] # (Auto) (0.11-0.59) K/uL Eos # (Auto) (0-0.5) K/uL Baso # (Auto) (0-0.2) K/uL Immature Gran # (Auto) (0.00-0.02) K/uL Hypochromasia Poikilocytosis Microcytosis Target Cells APTT 27.0 (21.0-31.0) Seconds PTT Ratio 1.0 Sodium 139 (136-145) mmol/L Potassium 4.0 (3.5-5.1) mmol/L Chloride 106 (98-107) mmol/L Carbon Dioxide 23 (21-32) mmol/L Anion Gap 9.0 (3-11) BUN 11 (7-18) mg/dl Creatinine 0.58 L (0.6-1.2) mg/dl Est Cr Clr Drug Dosing 105.3 ml/min Est GFR ( Amer) 122.0 ml/min Est GFR (Non-Af Amer) 105.2 ml/min BUN/Creatinine Ratio 18.6 (10-20) Glucose 83 (70-99) mg/dl Calcium 9.6 (8.5-10.1) mg/dl Total Bilirubin 1.1 H (0.2-1) mg/dl AST 42 H (15-37) U/L ALT 73 (12-78) U/L Alkaline Phosphatase 108 (45-117) U/L Troponin I < 0.015 (0-0.045) ng/ml Total Protein 7.4 (6.4-8.2) gm/dl Albumin 4.1 (3.4-5.0) gm/dl Globulin 3.3 (2.5-4.0) gm/dl Albumin/Globulin Ratio 1.2 (0.9-2) Triglycerides (0-150) mg/dl Cholesterol (0-200) mg/dl LDL Cholesterol, Calc mg/dl VLDL Cholesterol, Calc mg/dl HDL Cholesterol mg/dl Cholesterol/HDL Ratio Lipase 60 L (73-393) U/L HCG, Qual (Negative) Urine Color Yellow Urine Appearance Clear (Clear) Urine pH 6.5 (4.5-7.5) Ur Specific [place] 1.007 (1.000-1.030) Urine Protein Negative (Negative) Urine Glucose (UA) Negative (Negative) Urine Ketones 2+ H (Negative) Urine Blood Negative (Negative) Urine Nitrite Negative (Negative) Urine Bilirubin Negative (Negative) Urine Urobilinogen Negative (Negative) Ur Leukocyte Esterase Negative (Negative) COVID-19 Eval Order SARS-CoV-2 (PCR) (Negative) 03/29/21 Range/Units 12:20 WBC 7.01 (4.8-10.8) K/uL RBC 5.06 (4.2-5.4) M/uL Hgb 10.9 L (12.0-16.0) g/dL Hct 33.3 L (37-47) % MCV 65.8 L (80-100) fL MCH 21.5 L (25-34) pg MCHC 32.7 (32-36) g/dL RDW Std Deviation 37.5 (36.4-46.3) fL RDW Coeff of Tony 16.1 H (11.5-14.5) % Plt Count 274 (130-400) K/uL MPV 10.3 (7.4-10.4) fL Immature Gran % (Auto) 0.3 % Neut % (Auto) 64.4 % Lymph % (Auto) 26.1 % [place] % (Auto) 7.3 % Eos % (Auto) 1.6 % Baso % (Auto) 0.3 % Neut # (Auto) 4.52 (1.4-6.5) K/uL Lymph # (Auto) 1.83 (1.2-3.4) K/uL [place] # (Auto) 0.51 (0.11-0.59) K/uL Eos # (Auto) 0.11 (0-0.5) K/uL Baso # (Auto) 0.02 (0-0.2) K/uL Immature Gran # (Auto) 0.02 (0.00-0.02) K/uL Hypochromasia Present Poikilocytosis Present Microcytosis Present Target Cells 1+ APTT (21.0-31.0) Seconds PTT Ratio Sodium (136-145) mmol/L Potassium (3.5-5.1) mmol/L Chloride (98-107) mmol/L Carbon Dioxide (21-32) mmol/L Anion Gap (3-11) BUN (7-18) mg/dl Creatinine (0.6-1.2) mg/dl Est Cr Clr Drug Dosing ml/min Est GFR ( Amer) ml/min Est GFR (Non-Af Amer) ml/min BUN/Creatinine Ratio (10-20) Glucose (70-99) mg/dl Calcium (8.5-10.1) mg/dl Total Bilirubin (0.2-1) mg/dl AST (15-37) U/L ALT (12-78) U/L Alkaline Phosphatase (45-117) U/L Troponin I (0-0.045) ng/ml Total Protein (6.4-8.2) gm/dl Albumin (3.4-5.0) gm/dl Globulin (2.5-4.0) gm/dl Albumin/Globulin Ratio (0.9-2) Triglycerides (0-150) mg/dl Cholesterol (0-200) mg/dl LDL Cholesterol, Calc mg/dl VLDL Cholesterol, Calc mg/dl HDL Cholesterol mg/dl Cholesterol/HDL Ratio Lipase (73-393) U/L HCG, Qual (Negative) Urine Color Urine Appearance (Clear) Urine pH (4.5-7.5) Ur Specific [place] (1.000-1.030) Urine Protein (Negative) Urine Glucose (UA) (Negative) Urine Ketones (Negative) Urine Blood (Negative) Urine Nitrite (Negative) Urine Bilirubin (Negative) Urine Urobilinogen (Negative) Ur Leukocyte Esterase (Negative) COVID-19 Eval Order SARS-CoV-2 (PCR) (Negative) Medications Administered Current Inpatient Medications Acetaminophen (Acetaminophen 325 Mg Tab) 650 mg PO Q4H PRN PRN Reason: Pain or Fever Stop: 04/28/21 20:44 Albuterol (Albuterol Hfa 8 Gm Inhaler) 2 puffs INH Q6R PRN PRN Reason: Shortness Of Breath Or Wheezing Stop: 04/28/21 20:44 Aspirin (Aspirin 81 Mg Ectab) 81 mg PO [facility] Stop: 04/29/21 08:59 Last Admin: 03/30/21 12:43 Dose: 81 mg Documented by: Magnesium Hydroxide (Magnesium Hydroxide Susp 30 Ml Udc) 30 ml PO Q12H PRN PRN Reason: Constipation Stop: 04/28/21 20:44 Nitroglycerin (Nitroglycerin Sl 0.4 Mg/Tab Tab) 0.4 mg SL UD PRN PRN Reason: Chest Pain Stop: 04/28/21 20:44 Ondansetron HCl (Ondansetron Inj 2 Mg/Ml 2 Ml Vial) 4 mg IV Q6H PRN PRN Reason: Nausea Stop: 04/28/21 20:44 Last Admin: 03/30/21 08:07 Dose: 4 mg Documented by: Polyethylene Glycol (Polyethylene (Miralax) 17 Gm Pack) 17 gm PO DAILY PRN PRN Reason: Constipation Stop: 04/28/21 20:44 Sertraline HCl (Sertraline Hcl 100 Mg Tablet) 100 mg PO [facility] Stop: 04/29/21 08:59 Last Admin: 03/30/21 12:43 Dose: 100 mg Documented by:
[2021-03-30] MEDS ORDERED: ASPIRIN 81 MG ECTAB PO SCH (09:00)
[2021-03-30] MEDS ORDERED: SERTRALINE HCL 100 MG TABLET PO SCH (09:00)
--- NOTE | 2021-03-30 09:26 | Cardiology Consultation ---
Date of Consultation March 30, 2021 Assessment & Plan (1) Chest pain: Risk factors of former smoker, family history of CAD, mild dyslipidemia, LDL 150s. Resting echo is normal. Proceed with DAYAMI. (2) Abnormal CT of the abdomen: Recommend Gynecology evaluaiton. (3) Chronic anemia: (4) Beta thalassemia trait: Chronic anemia. History of Present Illness Attending Physician: Srikanth Raymond MD History of Present Illness Shelly Sumner is a 55 year old female seen in cardiology consultation per the request of Levon Larsen PA-C for the evaluaiton of chest pain. The patient describes several month history of generalized abdominal discomfort, as well as need to urinate frequently. She states that the need to urinate has been disruptive to her life, she has not been able to work because of it, and she is very tearful and frustrated in discussing it. She had associated abdominal discomfort, that was not necessarily associated with eating. Ultimately she underwent cholecystectomy performed in January,,. She has recovered from the procedure, but still has ongoing abdominal discomfort. 2 days ago she experienced nauseousness and abdominal discomfort and vomited. She then had a midline chest discomfort that radiated to her left shoulder blade. She had been to the emergency room, but left prior to being seen due to the long wait. She had since discussed her symptoms with her primary care provider and was referred back to the emergency department. EKG reveals no ischemic changes x2. Serial troponin I measurements are negative. A CT angiogram of the chest to exclude pulmonary embolism. A CT of the abdomen pelvis was performed, that revealed a 7.5 cm heterogenous enhancing mass at the base of the uterus. Per the radiology report this is pathologically indeterminate and may represent a large fibroid. Family History: Father : at the age of 55, of presumed heart event. History of alcoholism. Mother, of an accident Sister: Alcoholism. Social History: former smoker, quit a month ago after 40 years Unemployed, used to work in [employer], unable to work due to her urinary frequency. Allergies Allergy/AdvReac Type Severity Reaction Status Date / Time ceftriaxone Allergy Intermediate RASH Verified 01/31/21 05:47 Home Medications Medication Instructions Recorded Confirmed Type sertraline 100 mg tablet 100 mg PO QAM 01/26/21 03/29/21 History albuterol sulfate 90 mcg/actuation 2 puff INHALATION Q6H PRN 03/29/21 03/29/21 History aerosol inhaler celecoxib 200 mg capsule 200 mg PO DAILY 03/29/21 03/29/21 History Patient History Medical History Anxiety Beta thalassemia trait Seen by mina 10/25/20- Hgb stable since 2005 - was referred to [facility] for further evaluation if fatigue and chronic pain related to beta thalassemia trait Cervical cancer Chronic anemia Chronic obstructive pulmonary disease Polyarthralgia Stroke 15 yrs ago, incidental finding on MRI Surgical History History of cholecystectomy Hx of section Hx of laparoscopy ovarian cyst removal Hx of tubal ligation Social History Smoking Status: Former smoker Tobacco Type: Cigarettes Smoking End Date: 12/2020. Had smoked 1ppd x 40 years; Second Hand Exposure: No; Do You Dip or Chew Tobacco: No; Tobacco Cessation Education Requested by Patient: No Hx Alcohol Use: No Hx Substance Use: Yes Non-Prescribed Medications: Marijuana Last Used Substance Other:: medical marijuanna Substance Use Type Other:: medical marijuana Preferred Language: Citizen Of [place] Communication Ability: Effective Beliefs That Will Affect Care: None Current Living Situation: Spouse and Family Other Information That Helps Us Care for You: No Feels Safe at Home: Yes Safety Concerns: Feels Safe At This Time Assistive Devices: None Review of Systems Review of Systems: All systems reviewed & are unremarkable except as noted in HPI & below Physical Exam Physical Exam: Temp Pulse Resp BP Pulse Ox 36.8 C 67 18 106/63 97 03/30/21 07:19 03/30/21 07:34 03/30/21 07:19 03/30/21 07:19 03/30/21 07:19 Respiratory: normal respiratory effort, lungs clear to auscultation Cardiovascular: RRR, no murmur, no edema Gastrointestinal (Abdomen): generalized discomfort on palpitation Neurologic: PERRL, EOMI, accommodation nl, no face palsy, no dysarthria Results & Data ([facility]) Vital Signs (Past 12 Hours) Vital Signs Temp Pulse Pulse Pulse Resp BP BP 03/30/21 07:34 67 03/30/21 07:19 36.8 C 73 18 106/63 09/30/21 04:22 36.9 C 78 18 102/66 03/29/21 23:34 64 03/29/21 23:00 36.7 C 71 18 107/64 Pulse Ox 03/30/21 07:34 03/30/21 07:19 97 03/30/21 04:22 98 03/29/21 23:34 03/29/21 23:00 97 Laboratory Results Cardiac Enzymes 03/29/21 03/29/21 03/30/21 Range/Units 12:20 21:37 05:50 AST 42 H (15-37) U/L Troponin I < 0.015 < 0.015 < 0.015 (0-0.045) ng/ml Coagulation 03/29/21 Range/Units 12:20 APTT 27.0 (21.0-31.0) Seconds Lipids 03/30/21 Range/Units 05:50 Triglycerides 169 H (0-150) mg/dl Cholesterol 227 H (0-200) mg/dl HDL Cholesterol 36 mg/dl Cholesterol/HDL Ratio 6 CBC 03/29/21 03/30/21 Range/Units 12:20 05:50 WBC 7.01 6.78 (4.8-10.8) K/uL RBC 5.06 4.93 (4.2-5.4) M/uL Hgb 10.9 L 10.6 L (12.0-16.0) g/dL Hct 33.3 L 32.5 L (37-47) % Plt Count 274 285 (130-400) K/uL Neut # (Auto) 4.52 (1.4-6.5) K/uL Lymph # (Auto) 1.83 (1.2-3.4) K/uL [place] # (Auto) 0.51 (0.11-0.59) K/uL Eos # (Auto) 0.11 (0-0.5) K/uL Baso # (Auto) 0.02 (0-0.2) K/uL Comprehensive Metabolic Panel 03/29/21 03/30/21 Range/Units 12:20 05:50 Sodium 139 139 (136-145) mmol/L Potassium 4.0 4.3 (3.5-5.1) mmol/L Chloride 106 109 H (98-107) mmol/L Carbon Dioxide 23 24 (21-32) mmol/L BUN 11 10 (7-18) mg/dl Creatinine 0.58 L 0.58 L (0.6-1.2) mg/dl Glucose 83 81 (70-99) mg/dl Calcium 9.6 9.4 (8.5-10.1) mg/dl AST 42 H (15-37) U/L ALT 73 (12-78) U/L Alkaline Phosphatase 108 (45-117) U/L Total Protein 7.4 (6.4-8.2) gm/dl Albumin 4.1 (3.4-5.0) gm/dl Intake and Output 03/29/21 03/30/21 03/30/21 22:59 06:59 14:59 Intake Total 120 / 120 1000 / 1000 Balance 120 / 120 1000 / 1000 Intake: IV 1000 / 1000 Sodium Chloride 0.9% 1000ML 1, 1000 / 1000 000 ml @ 100 mls/hr IV .Q10H [facility] Rx#:[id number] Oral 120 / 120 Other: Other Intake Source NPO X SIPS AND CHIPS Weight 68.6 kg Weight Measurement Method Standing Scale
--- NOTE | 2021-03-30 10:04 | Communication Note ---
Date of Service: March 30, 2021 Normal stress echo. Proceed with risk factor modification. Pt already adhering to low fat diet. Proceed with work up for pelvic mass.
--- NOTE | 2021-03-30 11:13 | OB/GYN Consultation ---
Date of Consultation March 30, 2021 Assessment & Plan (1) Uterine mass: This mass is most likely a fibroid, however, with the hx of "cervical cancer" a cervical mass cannot be ruled out. I do not feel a mass in the vagina. Patient has never been told she has fibroids before, but notes a sister with hx of fibroids and full hysterectomy. LMP 6 months ago so likely perimenopausal. Also complains of bladder pressure/frequency/urgency. She is wondering if this mass could be contributing to these symptoms. The mass is likely a fibroid, has likely been there for years and slowly growing. Plan to f/u this patient in the outpatient clinic. My office will call her to arrange for an ultrasound, which will likely better delineate the mass, and appt with me, and will attempt speculum exam to evaluate for the cervix and obtain cervical cytology. We briefly discussed that we would not know if the fibroid/mass is the primary cause of her bladder symptoms without hyster. "I'm fine with that", she replies. Discussed that we would further discuss options in the office. Thank you for the consult and we will f/u as an outpatient. History of Present Illness Reason for Consultation: uterine mass Requesting Physician: Dr. Raymond Attending Physician: Srikanth Raymond MD History of Present Illness Shelly is a [id number], , who I am being consulted on for incidental discovery of a 7.5cm uterine mass on CT scan. Patient presented to the ED on 03/29 with CP radiating to the left arm, nausea and vomiting. She had a chest/abd/pelvis CT scan. On CT a 6.5x7.5x7.5mass was noted at the base of the uterus which could be a fibroid but cervical mass could not be ruled out. No mention of ovaries. Patient is a former patient of Dr. 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 Patient notes her periods stopped suddenly 6 months ago. She noted prior to that monthly periods with 3 days of heavier flow. No BTB. She does not describe changes in her period prior to that. Patient notes three pregnancies, all term. two vaginal deliveries, one was twins. Her last delivery was c/s with TL about 17 years ago. She notes she had "cervical cancer" that was discovered during that last that was not treated until after delivery when she notes she had a cone biopsy. She has not had a pap for many years. She is single and a . She has not been sexually active for 4-5 years. Patient notes she has been complaining to her [facility] doctors for "years" about her bladder issues. She notes frequency and urgency with incontinence and nocturia. She notes if she went to the [place] every time she felt an urge to go, she would be on the toilet all the time. She really doesn't think she has had a w/u for this and has not seen urology. This has been very distressing to her. She also describes constant pressure in the area of her bladder. Allergies Allergy/AdvReac Type Severity Reaction Status Date / Time ceftriaxone Allergy Intermediate RASH Verified 01/31/21 05:47 Home Medications Medication Instructions Recorded Confirmed Type sertraline 100 mg tablet 100 mg PO QAM 01/26/21 03/29/21 History albuterol sulfate 90 mcg/actuation 2 puff INHALATION Q6H PRN 03/29/21 03/29/21 History aerosol inhaler celecoxib 200 mg capsule 200 mg PO DAILY 03/29/21 03/29/21 History Patient History Medical History (Updated 03/30/21 @ 11:08 by Mavis Mejia MD, FACOG) Anxiety Beta thalassemia trait Seen by mina 10/25/20- Hgb stable since 2005 - was referred to [facility] for further evaluation if fatigue and chronic pain related to beta thalassemia trait Cervical cancer diagnosed in third , treated by cone biopsy Chronic anemia Chronic obstructive pulmonary disease Polyarthralgia Stroke 15 yrs ago, incidental finding on MRI Surgical History (Updated 03/30/21 @ 11:06 by Mavis Mejia MD, FACOG) H/O cone biopsy of cervix History of cholecystectomy Hx of section Hx of laparoscopy ovarian cyst removal Hx of tubal ligation Social History Smoking Status: Former smoker Tobacco Type: Cigarettes Smoking End Date: 12/2020. Had smoked 1ppd x 40 years; Second Hand Exposure: No; Do You Dip or Chew Tobacco: No; Tobacco Cessation Education Requested by Patient: No Hx Alcohol Use: No Hx Substance Use: Yes Non-Prescribed Medications: Marijuana Last Used Substance Other:: medical hermila Substance Use Type Other:: medical marijuana Preferred Language: Amharic Communication Ability: Effective Beliefs That Will Affect Care: None Current Living Situation: Spouse and Family Other Information That Helps Us Care for You: No Feels Safe at Home: Yes Safety Concerns: Feels Safe At This Time Assistive Devices: None Physical Exam 2 Constitutional: WD/WN, vitals as above (sitting comfortably in bed) Gastrointestinal (Abdomen): soft, nt, nd, no palpable masses Skin: no rashes, warm and dry Psychiatric: A+Ox3, euthymic affect Genitourinary: It is difficult to perform exam in bed, so exam limited to BME today. nefg, nl bus, vagina palpates normally. The pelvis is filled with a mass that is likely posterior to the uterus. I cannot palpate a cervix. The mass is round and approximately 8cm. It is mobile and nontender. Cannot appreciate adnexa. Results & Data ([facility]) Vital Signs (Past 12 Hours) Vital Signs Temp Pulse Pulse Pulse Resp BP BP 03/30/21 07:34 67 03/30/21 07:19 36.8 C 73 18 106/63 03/30/21 04:22 36.9 C 78 18 102/66 03/29/21 23:34 64 03/29/21 23:00 36.7 C 71 18 107/64 Pulse Ox 03/30/21 07:34 03/30/21 07:19 97 03/30/21 04:22 98 03/29/21 23:34 03/29/21 23:00 97 PG Care Time/CCT Total # of Minutes Spent Total Time Spent with Patient: Total time spent is greater than 50% in coordination of care (as documented) at patient's floor/unit and/or counseling patient: Coding Level of Care Code 01404 Inpt Consult Level 3 Diagnoses Uterine mass N85.8
--- NOTE | 2021-03-30 15:52 | Discharge Summary ---
Date of Service March 30, 2021 Admission HPI Per Admitting Provider Patient is 55-year-old female with PMH beta thalassemia trait, polyarthralgia, cervical cancer, COPD, anxiety, former tobacco use presented to ER with complaint of chest pain yesterday. Patient reports yesterday with sharp chest pain and left arm pain that occurred after vomiting. Left arm feels better today and no chest pain today. Denies SOB. She reports nausea and vomiting x2 days. No vomiting today. Hasn't been drinking or eating past day and feels dizzy with standing and concerned she is dehydrated. Patient left ER without being seen yesterday 03/28/2021. She then went to [facility] and reports had EKG which was reported as okay. Patient followed up with PCP today and patient was concerned she had a heart attack and did not want outpatient stress testing so she presented to ER today for further evaluation. reports chronic urinary frequency and urinates once an hour. Denies dysuria, hematuria. History cholecystectomy 01/31/21 and reports has been doing well since and is following low fat diet and t rying to eat a lot of leafy greens. History tubal ligation. Yesterday small hard bowel movement. Denies fever/chills, diaphoresis, hematemesis, melena, hematochezia, GRAHAM, syncope, vision changes, neck pain, orthopnea, palpitations, cough, sore throat, choking, otalgia, rhinorrhea, abdominal pain, paresthesias, weakness, extremity weakness, extremity edema, rashes. LMP 7 months ago Today in ER EKG with acute ST elevation. Negative troponin. Pt is currently without CP. CTA chest No PE. Admission Exam Per Admitting Provider General: no distress, WDWN Head: normocephalic, atraumatic Eyes: PERRL, EOM's intact, conjunctiva non-injected, anicteric ENT: normal inspection external ears, nose, mucous membranes dry Neck: supple, trachea midline Lungs: clear, no respiratory distress, no wheezing/rhonchi/rales CV: RRR, no murmur, no pretibial edema; chest wall without ecchymosis or rashes. +tenderness to palpation left anterior chest wall Abd: healed surgical incision RUQ, umbilicus, normal BS, soft, + tenderness to palpation RLQ, LLQ without rebound or guarding Ext: no cyanosis, no calf tenderness Neuro: A&O x 3, no focal deficits noted, normal affect Skin: warm, dry Principal Diagnosis Atypical chest pain Uterine mass Discharge Exam General: WDWN F in NAD Head: normocephalic, atraumatic Eyes: PERRL, EOM's intact, conjunctiva non-injected, anicteric ENT: normal inspection external ears, nose, mucous membranes dry Neck: supple, trachea midline Lungs: clear, no respiratory distress, no wheezing/rhonchi/rales CV: RRR, no murmur, no pretibial edema; chest wall without ecchymosis or rashes Abd: healed surgical incision RUQ, umbilicus, normal BS, soft, + minimal tenderness to palpation RLQ, LLQ without rebound or guarding Ext: no cyanosis, no calf tenderness Neuro: A&O x 3, no facial asymmetry, speech fluent, moves extremities Skin: warm, dry Discharge Data Allergies Allergy/AdvReac Type Severity Reaction Status Date / Time ceftriaxone Allergy Intermediate RASH Verified 01/31/21 05:47 Consultations 03/29/21 16:18 ED Decision to Admit Stat 03/30/21 07:35 Consult Cardiology Routine 03/30/21 10:17 Consult Gynecology Routine Ordered Studies 03/29/21 15:22 CT abd pelvis IV con only Stat CT angio chest PE protocol Stat Hospital Course (1) Chest pain: Patient is 55-year-old female with PMH beta thalassemia trait, polyarthralgia, cervical cancer, COPD, anxiety, former tobacco use presented to ER with complaint of chest pain and left arm pain yesterday occurred after vomiting. in ER EKG with acute ST elevation. Negative troponin. Pt is currently without CP. CTA chest No PE. R/O ACS. Risk factors: tobacco use, FH May be musculoskeletal etiology -Monitor Vitals -Repeat EKG in am -troponin x3 negative -Echo -LVEF 60-65%. Aortic valve is trileaflet. Aortic valve sclerosis mild, without significant aortic valvular stenosis. No aortic regurg is present. Aortic root is mildly dilated at 3.8 cm. Proximal ascending aorta is normal size. Stress echo - normal exercise stress echo. No echo or ECG evidence of myocardial ischemia having achieved heart rate adequate for diagnostic purposes. -lipid panel - LDL 157 -patient plans to follow a low-fat diet and continue to monitor -ASA (2) Nausea and vomiting: Constipation Nausea, Vomiting x 2 days No bowel obstruction seen on CT Abd/pelvis -Liquid diet -Miralax now and prn -IVF Currently patient is tolerating diet, passing gas, yesterday had suppository with a small bowel movement. No nausea vomiting at this time (3) Abnormal CT of the abdomen: CT ABD/PELVIS: IMPRESSION: 1. The bladder wall appears circumferentially thickened. Correlate with clinical findings and urinalysis. 2. There is a 7.5 cm heterogeneously enhancing mass lesion at the base of the uterus. This is pathologically indeterminant and may represent a large fibroid. Given the location, a cervical lesion is not excluded. Gynecology follow-up is recommended. 3. There is a 2.1 cm fat attenuation structure in the right pelvis with surrounding suture material. This may represent postoperative change. A fat- containing lesion such as dermoid is not excluded. Correlate with the patient's operative history. This should also be assessed at gynecology follow-up. 4. Liquid stool is noted in the right colon. Correlate for evidence of a diarrheal illness. 5. Moderate constipation. 6. Additional findings as above. Uterine mass 2.1 cm fat attenuation structure in the right pelvis with surrounding suture material. H/O tubal ligation. Discussed with the patient uterine mass findings and she is anxious about that [employer] was consulted Most likely fibroid, patient will be scheduled for further follow-up Bladder thickening - UA unremarkable Cont. outpt follow up (4) Beta thalassemia trait: (5) Chronic anemia: Hgb: 10.9. At baseline (6) Chronic obstructive pulmonary disease: Continue albuterol as needed (7) Anxiety: Continue sertraline (8) Polyarthralgia: Current work up with [facility] rheumatology Hold Celebrex for now with current GI upset DVT Prophylaxis -SCDs Full Code as per discussion with pt Follows with Dr Sparks for routine care Total Time Total Time Spent Total Time Spent (In Minutes): 35 Discharge Plan Discharge Items Patient Disposition: Home - Self-Care Reason For Visit: CP Discharge Diagnosis: Atypical chest pain Uterine mass Condition on Discharge: Good Activity: Per Instructions section Non-emergency contact: Primary Care Provider and Doctor Of Osteopathy Call non-emergency contact if: you have any medication questions and your symptoms worsen Follow-up/Referrals: Alexi Sparks DO [Primary Care Provider] - (Date & Time 04/05/2021 11:00 AM Provider MELLISA Andrews Department [facility] ) Diet: Low Fat and Lactose Intolerant Addtl Attending Provider Instructions: Follow up with your primary care provider, the appointment is scheduled for you for April 05. If this time does not work for you, please reschedule, however you should be seen within 1 to 2 weeks. You will also need to follow-up with your buccaro, you will be contacted about the appointment. Pending Studies at Discharge: No Stand-Alone Forms: My [facility] [employer], Smoking Cessation Medications and DC Order Prescriptions: New aspirin 81 mg Tablet,Delayed Release (Dr/Ec) 81 mg PO QAM Qty: 30 RF: 0 Continued sertraline 100 mg Tablet 100 mg PO QAM RF: 0 celecoxib 200 mg capsule 200 mg PO DAILY RF: 0 albuterol sulfate 90 mcg/actuation HFA aerosol inhaler 2 puff INHALATION Q6H PRN (Reason: Shortness Of Breath Or Wheezing) RF: 0 Discharge Orders: Discharge Order (Routine); Ordered 03/30/21 Ordered By: Srikanth Raymond Admission Data Admit Date/Time: 03/29/21 16:22 Attending Provider: Srikanth Raymond Admit Provider: Srikanth Raymond Primary Care Provider: Alexi Sparks Other Providers: Srikanth Raymond ; Ru Alcala ; Mavis Mejia
--- NOTE | 2021-03-31 16:54 | Electrocardiogram Report ---
Test Reason : Blood Pressure : / mmHG Vent. Rate : 070 BPM Atrial Rate : 070 BPM P-R Int : 162 ms QRS Dur : 084 ms QT Int : 382 ms P-R-T Axes : 069 071 064 degrees QTc Int : 412 ms Normal sinus rhythm Normal ECG When compared with ECG of 29-MAR-2021 12:14, No significant change was found Confirmed by Jonathan Hampton ([id number]) on 03/31/2021 4:54:15 PM Referred By: REFERRED SELF Confirmed By:Jonathan Hampton
== END 2021-03-30 16:26 | disposition home or self-care (01) ==
LOC: 2N 12:02 → ED 12:02 → 2N 19:36

== ENCOUNTER 2022-04-02 14:22 | Inpatient (IN) ==
[2022-04-02 14:58] LABS: Appearance Urine Turbid (Clear); Bacteria Urine Automated 4+ (Negative); Bilirubin Urine Negative (Negative); Blood Urine Negative (Negative); Color Urine Orange; Epithelial Cell Urine Auto >30 /lpf (0-5); Glucose Urine UA Negative (Negative); Ketones Urine 3+ (Negative); Leukocyte Esterase Urine Trace (Negative); Nitrite Urine Positive (Negative); Protein Urine 2+ (Negative); Specific Gravity Urine 1.026 (1.000-1.030); Urobilinogen Urine Negative (Negative); pH Urine 5.5 (4.5-7.5)
[2022-04-02 15:14] LABS: Calcium Oxalate Crystals Urine Present (None Prsent); Mucus Urine Present (None Prsent)
[2022-04-02 15:14] LABS: Basophils # (auto) 0.06 K/uL (0-0.2); Basophils % (auto) 0.5 %; Eosinophils # (auto) 0.01 K/uL (0-0.50); Eosinophils % (auto) 0.1 %; Hematocrit (blood only) 36.5 % (34.1-44.9); Hemoglobin 11.9 g/dl (12.0-16.0); Immature Granulocytes # (auto) 0.04 K/uL (0.00-0.02); Immature Granulocytes % (auto) 0.3 %; Lymphocytes # (auto) 2.65 K/uL (1.2-3.4); Lymphocytes % (auto) 22.1 %; Mean Corpuscular Hemoglobin 21.6 pg (25.0-34.0); Mean Corpuscular Hgb Conc 32.6 g/dL (32.0-36.0); Mean Corpuscular Volume 66.2 fL (80.0-100.0); Monocytes # (auto) 0.68 K/uL (0.24-0.82); Monocytes % (auto) 5.7 %; Neutrophils # (auto) 8.55 K/uL (1.4-6.5); Neutrophils % (auto) 71.3 %; RDW Coefficient of Variation 15.1 % (11.5-14.5); RDW Standard Deviation 34.6 fL (36.4-46.3); Red Blood Count 5.51 M/uL (3.93-5.22); White Blood Count 11.99 K/ul (4.8-10.8)
[2022-04-02 15:15] LABS: RBC Urine Automated 0-4 /hpf (0-4)
[2022-04-02] MEDS ORDERED: LORazepam 1 MG TAB SL STA (15:19)
[2022-04-02 15:31] LABS: Acetaminophen < 3 ug/ml (10-30); Salicylate < 3.0 mg/dl (3.0-30)
[2022-04-02 15:35] LABS: Albumin Globulin Ratio 3.1 (0.9-2); Albumin Level 5.2 gm/dl (3.4-5.0); Bilirubin,Total 1.6 mg/dl (0.2-1.0); Calcium 9.9 mg/dl (8.5-10.1); Creatinine Clr Calc Pharmacy 91.3 ml/min; Est GFR (African American) 117.9 ml/min; Est GFR (Non-African American) 101.7 ml/min; Globulin 1.7 gm/dl (2.5-4.0); Potassium 3.3 mmol/L (3.5-5.1); Total Protein 6.9 gm/dl (6.0-8.3)
[2022-04-02 15:43] LABS: Amphetamines+Metham, Urine Pos (Neg); Barbiturates, Urine Neg (Neg); Benzodiazepine, Urine Neg (Neg); Cocaine, Urine Neg (Neg); MDMA (Ecstacy), Urine Neg (Neg); Methadone, Urine Neg (Neg); Opiate, Urine Neg (Neg); Phencyclidine, Urine Neg (Neg)
[2022-04-02 16:21] LABS: Mean Platelet Volume 10.5 fL (9.4-12.3); Ovalocytes 1+; Platelet Count 345 K/uL (130-400); Polychromasia 1+; Schistocytes 1+; Target Cells 1+; Tear Drop Cells 1+
[2022-04-02] MEDS ORDERED: CIPROFLOXACIN 500 MG TAB PO STA (16:29)
[2022-04-02] MEDS ORDERED: ACETAMINOPHEN 325 MG TAB PO PRN (19:05)
[2022-04-02] MEDS ORDERED: ALUMINUM/MAGNESIUM SUSP 30 ML UDC PO PRN (19:05)
[2022-04-02] MEDS ORDERED: SODIUM CHLORIDE 0.65% NA SOLN 45 ML (OCEAN) PRN (19:05)
[2022-04-02] MEDS ORDERED: BISMUTH SUBSALICYLATE LIQD 236 ML PO PRN (19:05)
--- NOTE | 2022-04-02 19:51 | Emergency Department Note ---
History of Present Illness General Chief complaint: Mental Health Evaluation Stated complaint: MENTAL HEALTH EVALUATION Time Seen by Provider: 04/02/22 14:34 History of Present Illness Provider complaint: Depression and anxiety Maximum Pain Intensity: 5 56-year-old female presents emergency department for depression and anxiety. Patient reports that she has been feeling depressed and anxious since her car was recently impounded due to her having marijuana in it. The patient states after her car was impounded she became homeless. Patient states she feels very guilty about this. Patient reports she has been unable to sleep, unable to concentrate and unable to eat. Patient reports she has been having loss of interest in things that used to give her jing. She reports that she tried to kill her self today when the police stopped her by trying to walk out into traffic. Home Medications Medication Instructions Recorded Confirmed Type No Known Home Medications 04/02/22 04/02/22 History Allergies Allergy/AdvReac Type Severity Reaction Status Date / Time ceftriaxone Allergy Intermediate RASH Verified 04/13/21 12:59 Past Med/Surg History Medical History Acute bronchitis (03/08/13) Anxiety Beta thalassemia trait Seen by mina 10/25/20- Hgb stable since 2005 - was referred to [facility] for further evaluation if fatigue and chronic pain related to beta thalassemia trait Cervical cancer diagnosed in third , treated by cone biopsy Chronic anemia Chronic obstructive pulmonary disease Gestational diabetes mellitus (03/08/13) Polyarthralgia Stroke 15 yrs ago, incidental finding on MRI Thalassemia trait (03/08/13) Surgical History H/O cone biopsy of cervix History of cholecystectomy Hx of section Hx of laparoscopy ovarian cyst removal Hx of tubal ligation Social History Smoking Status: Current every day smoker Tobacco Type: E-cigarettes / Vaping Second Hand Exposure: No; Hx Alcohol Use: No Hx Substance Use: Yes Non-Prescribed Medications: Marijuana Last Used Substance Other:: medical marijuanna Substance Use Type Other:: medical marijuana Preferred Language: Singaporean Communication Ability: Effective Beliefs That Will Affect Care: None Current Living Situation: Spouse and Family Feels Safe at Home: Yes Assistive Devices: None Review of Systems A total of 10 systems reviewed and were otherwise negative Physical Exam Vital Signs Vital Signs - 24 hr 04/02/22 14:28 04/02/22 17:22 Temperature 36.7 C Temperature Source Temporal Artery Scan Pulse Rate 110 H Pulse Rate [Apical] 78 Pulse Rhythm Regular Pulse Strength Normal Respiratory Rate 20 20 Respiratory Effort / Characteristics Non-Labored Spontaneous Respiratory Depth Normal Respiratory Pattern Regular Blood Pressure 150/102 H Blood Pressure [Left Arm] 150/74 H Blood Pressure Mean 118 Blood Pressure Mean [Left Arm] 99 Blood Pressure Position Sitting Pulse Oximetry 97 98 Oxygen Delivery Method Room Air Room Air Sepsis Recent Fever Within 48 Hours No Sepsis New/Unexplained Change in Mental Status No Sepsis Action Taken by Nursing No Action Required Physical Exam HENT: Exam performed. -Head: Normocephalic and atraumatic. -Right Ear: External ear normal. No mastoid tenderness. -Left Ear: External ear normal. No mastoid tenderness. -Mouth/Throat: The oropharynx is clear and moist. No trismus in the jaw. No dental abscesses or uvula swelling. No oropharyngeal exudate or tonsillar abscesses. EYES: Conjunctivae and EOM are normal. Pupils are equal, round, and reactive to light. Right eye exhibits no discharge. Left eye exhibits no discharge. No scleral icterus. NECK: Normal range of motion. Neck supple. No JVD present. No spinous process tenderness present. No carotid bruit present. No rigidity. No tracheal deviation and normal range of motion present. No Brudzinski's sign and no Kernig's sign noted. CV: Normal rate, regular rhythm, normal heart sounds and intact distal pulses. There is no peripheral edema. Palpable radial pulses bue. PULM/CHEST: Effort normal and breath sounds normal. No respiratory distress. No stridor. She has no wheezes. She has no rales. -Chest Wall: She exhibits no tenderness. ABD: The abdomen is soft. Bowel sounds are normal. She has no distension. No mass is present. There is no tenderness. There is no rebound, no guarding, no Peterson's sign and no tenderness at McBurney's point. Rovsig negative MUSC/SKEL: Normal range of motion. There is no peripheral edema, tenderness or deformity. LYMPH: No cervical adenopathy. NEURO: She is alert and oriented to person, place, and time. She has normal strength. No cranial nerve deficit or sensory deficit. Coordination and gait normal. GCS eye subscore is 4. GCS verbal subscore is 5. GCS motor subscore is 6. Cerebellar tests wnl. SKIN: Skin is warm and dry. She is not diaphoretic. PSYCH: Crying. Depressed. Suicidal. Course Course 1434: The patient was evaluated in room A6. A complete history and physical exam was performed 1630: Patient medically cleared. Patient has UTI. Cipro ordered for the patient. Antibiotics should be considered for 5 to 7 days for the patient. Patient will need inpatient psychiatric treatment. Awaiting psychiatric patient placement. Patient placed in observation at this time. 2030: Patient accepted to [facility] for inpatient psychiatric admission. Administered Medications Ciprofloxacin (Ciprofloxacin 500 Mg Tab) 500 mg PO BID LETI Stop: 04/07/22 20:59 Last Admin: 04/02/22 22:43 Dose: 500 mg Documented By: EW Discontinued Medications Ciprofloxacin (Ciprofloxacin 500 Mg Tab) 500 mg PO NOW STA Stop: 04/02/22 16:30 Last Admin: 04/02/22 16:39 Dose: 500 mg Documented By: HS Lorazepam (Lorazepam 1 Mg Tab) 1 mg SL NOW STA Stop: 04/02/22 15:20 Last Admin: 04/02/22 16:16 Dose: 1 mg Documented By: HS Medical Decision Making Laboratory Data Result diagrams: 04/02/22 14:55 04/02/22 14:55 Lab Results 04/02/22 04/02/22 04/02/22 Range/Units 14:41 14:41 14:51 WBC (4.8-10.8) K/ul RBC (3.93-5.22) M/uL Hgb (12.0-16.0) g/dl Hct (34.1-44.9) % MCV (80.0-100.0) fL MCH (25.0-34.0) pg MCHC (32.0-36.0) g/dL RDW Std Deviation (36.4-46.3) fL RDW Coeff of Tony (11.5-14.5) % Plt Count (130-400) K/uL MPV (9.4-12.3) fL Immature Gran % (Auto) % Neut % (Auto) % Lymph % (Auto) % Bland % (Auto) % Eos % (Auto) % Baso % (Auto) % Neut # (Auto) (1.4-6.5) K/uL Lymph # (Auto) (1.2-3.4) K/uL Bland # (Auto) (0.24-0.82) K/uL Eos # (Auto) (0-0.50) K/uL Baso # (Auto) (0-0.2) K/uL Immature Gran # (Auto) (0.00-0.02) K/uL Polychromasia Target Cells Tear Drop Cells Ovalocytes Schistocytes Sodium (136-145) mmol/L Potassium (3.5-5.1) mmol/L Chloride (98-107) mmol/L Carbon Dioxide (21-32) mmol/L Anion Gap (3-11) BUN (6-23) mg/dl Creatinine (0.6-1.2) mg/dl Est Cr Clr Drug Dosing ml/min Est GFR ( Amer) ml/min Est GFR (Non-Af Amer) ml/min BUN/Creatinine Ratio (10-20) Glucose (70-99(Fasting)) mg/dl Calcium (8.5-10.1) mg/dl Total Bilirubin (0.2-1.0) mg/dl AST (13-39) U/L ALT (7-52) U/L Alkaline Phosphatase (34-104) U/L Total Protein (6.0-8.3) gm/dl Albumin (3.4-5.0) gm/dl Globulin (2.5-4.0) gm/dl Albumin/Globulin Ratio (0.9-2) TSH (0.300-4.500) uIu/ml Urine Color [place] Urine Appearance Turbid A (Clear) Urine pH 5.5 (4.5-7.5) Ur Specific [place] 1.026 (1.000-1.030) Urine Protein 2+ H (Negative) Urine Glucose (UA) Negative (Negative) Urine Ketones 3+ H (Negative) Urine Blood Negative (Negative) Urine Nitrite Positive A (Negative) Urine Bilirubin Negative (Negative) Urine Urobilinogen Negative (Negative) Ur Leukocyte Esterase Trace H (Negative) Urine WBC (Auto) 5-10 H (0-5) /hpf Urine RBC (Auto) 0-4 (0-4) /hpf U Hyaline Cast (Auto) 1-5 (0-5) /lpf U Epithel Cells (Auto) >30 H (0-5) /lpf Urine Bacteria (Auto) 4+ H (Negative) Ur Renal Epithelial Cell Not Reportable Urine Crystals Not Reportable Calcium Oxalate Crystal Present A (None Prsent) Urine Mucus Present A (None Prsent) Salicylates (3.0-30) mg/dl Urine Opiates Screen Neg (Neg) Ur Methadone, Qual Neg (Neg) Acetaminophen (10-30) ug/ml Urine Barbiturates Neg (Neg) Ur Phencyclidine (PCP) Neg (Neg) U Amphetamin/Meth Scrn Pos H (Neg) MDMA (Ecstasy) Screen Neg (Neg) U Benzodiazepines Scrn Neg (Neg) Ur Cocaine Metabolite Neg (Neg) U Marijuana (THC) Screen Pos H (Neg) Ethyl Alcohol mg/dL (<10.0) mg/dl SARS-CoV-2, RNA, NAAT NEGATIVE (NEGATIVE) 04/02/22 04/02/22 04/02/22 Range/Units 14:55 14:55 14:55 WBC 11.99 H (4.8-10.8) K/ul RBC 5.51 H (3.93-5.22) M/uL Hgb 11.9 L (12.0-16.0) g/dl Hct 36.5 (34.1-44.9) % MCV 66.2 L (80.0-100.0) fL MCH 21.6 L (25.0-34.0) pg MCHC 32.6 (32.0-36.0) g/dL RDW Std Deviation 34.6 L (36.4-46.3) fL RDW Coeff of Tony 15.1 H (11.5-14.5) % Plt Count 345 (130-400) K/uL MPV 10.5 (9.4-12.3) fL Immature Gran % (Auto) 0.3 % Neut % (Auto) 71.3 % Lymph % (Auto) 22.1 % Bland % (Auto) 5.7 % Eos % (Auto) 0.1 % Baso % (Auto) 0.5 % Neut # (Auto) 8.55 H (1.4-6.5) K/uL Lymph # (Auto) 2.65 (1.2-3.4) K/uL Bland # (Auto) 0.68 (0.24-0.82) K/uL Eos # (Auto) 0.01 (0-0.50) K/uL Baso # (Auto) 0.06 (0-0.2) K/uL Immature Gran # (Auto) 0.04 H (0.00-0.02) K/uL Polychromasia 1+ Target Cells 1+ Tear Drop Cells 1+ Ovalocytes 1+ Schistocytes 1+ Sodium 137 (136-145) mmol/L Potassium 3.3 L (3.5-5.1) mmol/L Chloride 102 (98-107) mmol/L Carbon Dioxide 25 (21-32) mmol/L Anion Gap 10 (3-11) BUN 12 (6-23) mg/dl Creatinine 0.63 (0.6-1.2) mg/dl Est Cr Clr Drug Dosing 91.3 ml/min Est GFR ( Amer) 117.9 ml/min Est GFR (Non-Af Amer) 101.7 ml/min BUN/Creatinine Ratio 19.0 (10-20) Glucose 108 H (70-99(Fasting)) mg/dl Calcium 9.9 (8.5-10.1) mg/dl Total Bilirubin 1.6 H (0.2-1.0) mg/dl AST 27 (13-39) U/L ALT 22 (7-52) U/L Alkaline Phosphatase 100 (34-104) U/L Total Protein 6.9 (6.0-8.3) gm/dl Albumin 5.2 H (3.4-5.0) gm/dl Globulin 1.7 L (2.5-4.0) gm/dl Albumin/Globulin Ratio 3.1 H (0.9-2) TSH 1.629 (0.300-4.500) uIu/ml Urine Color Urine Appearance (Clear) Urine pH (4.5-7.5) Ur Specific [place] (1.000-1.030) Urine Protein (Negative) Urine Glucose (UA) (Negative) Urine Ketones (Negative) Urine Blood (Negative) Urine Nitrite (Negative) Urine Bilirubin (Negative) Urine Urobilinogen (Negative) Ur Leukocyte Esterase (Negative) Urine WBC (Auto) (0-5) /hpf Urine RBC (Auto) (0-4) /hpf U Hyaline Cast (Auto) (0-5) /lpf U Epithel Cells (Auto) (0-5) /lpf Urine Bacteria (Auto) (Negative) Ur Renal Epithelial Cell Urine Crystals Calcium Oxalate Crystal (None Prsent) Urine Mucus (None Prsent) Salicylates (3.0-30) mg/dl Urine Opiates Screen (Neg) Ur Methadone, Qual (Neg) Acetaminophen (10-30) ug/ml Urine Barbiturates (Neg) Ur Phencyclidine (PCP) (Neg) U Amphetamin/Meth Scrn (Neg) MDMA (Ecstasy) Screen (Neg) U Benzodiazepines Scrn (Neg) Ur Cocaine Metabolite (Neg) U Marijuana (THC) Screen (Neg) Ethyl Alcohol mg/dL (<10.0) mg/dl SARS-CoV-2, RNA, NAAT (NEGATIVE) 04/02/22 04/02/22 Range/Units 14:55 14:55 WBC (4.8-10.8) K/ul RBC (3.93-5.22) M/uL Hgb (12.0-16.0) g/dl Hct (34.1-44.9) % MCV (80.0-100.0) fL MCH (25.0-34.0) pg MCHC (32.0-36.0) g/dL RDW Std Deviation (36.4-46.3) fL RDW Coeff of Tony (11.5-14.5) % Plt Count (130-400) K/uL MPV (9.4-12.3) fL Immature Gran % (Auto) % Neut % (Auto) % Lymph % (Auto) % [place]land % (Auto) % Eos % (Auto) % Baso % (Auto) % Neut # (Auto) (1.4-6.5) K/uL Lymph # (Auto) (1.2-3.4) K/uL Bland # (Auto) (0.24-0.82) K/uL Eos # (Auto) (0-0.50) K/uL Baso # (Auto) (0-0.2) K/uL Immature Gran # (Auto) (0.00-0.02) K/uL Polychromasia Target Cells Tear Drop Cells Ovalocytes Schistocytes Sodium (136-145) mmol/L Potassium (3.5-5.1) mmol/L Chloride (98-107) mmol/L Carbon Dioxide (21-32) mmol/L Anion Gap (3-11) BUN (6-23) mg/dl Creatinine (0.6-1.2) mg/dl Est Cr Clr Drug Dosing ml/min Est GFR ( Amer) ml/min Est GFR (Non-Af Amer) ml/min BUN/Creatinine Ratio (10-20) Glucose (70-99(Fasting)) mg/dl Calcium (8.5-10.1) mg/dl Total Bilirubin (0.2-1.0) mg/dl AST (13-39) U/L ALT (7-52) U/L Alkaline Phosphatase (34-104) U/L Total Protein (6.0-8.3) gm/dl Albumin (3.4-5.0) gm/dl Globulin (2.5-4.0) gm/dl Albumin/Globulin Ratio (0.9-2) TSH (0.300-4.500) uIu/ml Urine Color Urine Appearance (Clear) Urine pH (4.5-7.5) Ur Specific [place] (1.000-1.030) Urine Protein (Negative) Urine Glucose (UA) (Negative) Urine Ketones (Negative) Urine Blood (Negative) Urine Nitrite (Negative) Urine Bilirubin (Negative) Urine Urobilinogen (Negative) Ur Leukocyte Esterase (Negative) Urine WBC (Auto) (0-5) /hpf Urine RBC (Auto) (0-4) /hpf U Hyaline Cast (Auto) (0-5) /lpf U Epithel Cells (Auto) (0-5) /lpf Urine Bacteria (Auto) (Negative) Ur Renal Epithelial Cell Urine Crystals Calcium Oxalate Crystal (None Prsent) Urine Mucus (None Prsent) Salicylates < 3.0 L (3.0-30) mg/dl Urine Opiates Screen (Neg) Ur Methadone, Qual (Neg) Acetaminophen < 3 L (10-30) ug/ml Urine Barbiturates (Neg) Ur Phencyclidine (PCP) (Neg) U Amphetamin/Meth Scrn (Neg) MDMA (Ecstasy) Screen (Neg) U Benzodiazepines Scrn (Neg) Ur Cocaine Metabolite (Neg) U Marijuana (THC) Screen (Neg) Ethyl Alcohol mg/dL < 10.0 (<10.0) mg/dl SARS-CoV-2, RNA, NAAT (NEGATIVE) MDM Narrative Observation note Indication: Psych eval/placement Patient, with anxiety, stroke, was first seen at 1434 hrs and the observation time began at 1630 hrs and was necessary in order to have psych evaluation completed . Upon re-evaluation, 4 hours of observation revealed that the patient should be admitted to [facility] Disposition date and time April 02, 2022 2030. Impression & Plan Depression with suicidal ideation Discharge Plan Visit Data Chief Complaint: Mental Health Evaluation Stated Complaint: MENTAL HEALTH EVALUATION ED Provider: Noel Ferguson Discharge Problem: Depression with suicidal ideation Patient Disposition: Admitted As Inpatient Discharge Instructions Interventions: ED Discharge Assessment Last Done: 04/02/22 20:49
[2022-04-02] MEDS: CIPROFLOXACIN 500 MG TAB PO SCH (22:43)
[2022-04-03] MEDS: hydrOXYzine HCl 25 MG TAB PO PRN ×2 (05:32→19:21)
[2022-04-03] MEDS: CIPROFLOXACIN 500 MG TAB PO SCH ×2 (09:23→19:21)
[2022-04-03] MEDS ORDERED: NICOTINE POLACRILEX 2 MG GUM MT PRN (09:47)
[2022-04-03] MEDS: NICOTINE 21 MG/24 HR TDSY TD SCH (10:31)
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
[2022-04-03] MEDS ORDERED: DESTROY THIS MEDICATION ONE (13:45)
[2022-04-04] MEDS: CIPROFLOXACIN 500 MG TAB PO SCH ×2 (08:49→20:40)
[2022-04-04] MEDS: DULoxetine HCL 20 MG CAP PO SCH (08:49)
[2022-04-04] MEDS: NICOTINE 21 MG/24 HR TDSY TD SCH (08:49)
--- NOTE | 2022-04-04 11:40 | Psychiatric Progress Note ---
Date of Service April 04, 2022 Impression / Recommendations Impression The patient is a 56 year old with a history of depression and anxiety who was admitted for walking into traffic as a suicide attempt after having items stolen and in police response to her suicide attempt had her camper which serves as her current housing impounded due to having cannabis. Diagnostically consistent with unspecified mood disorder, differential including MDD vs complex PTSD vs substance-induced presentation (cannabis use and UDS screening positive for methamphetamine/amphetamine). The patient is deemed unstable and requires psychiatric hospitalization for diagnostic clarification, safety and st abilization, medication management and development of further coping skills. MNPR due to poor judgment/disrobing in front of others/high emotional reactivity. 04/04/22: Ongoing depression and anxiety. Less mood lability today. Tolerating initial dose of Cymbalta, she prefers slow titration. Requests STD testing as the unknown/potential risk of this is adding to her anxiety and depression. (1) Suicide attempt: (2) Depression with suicidal ideation: (3) Unspecified mood [affective] disorder: (4) UTI (urinary tract infection): (5) Beta thalassemia trait: (6) Stroke: (7) Cannabis use with anxiety disorder: Plan 04/04/22: Continue with Cymbalta 20mg qd. Per discussion with pharmacist appropriate for 3 day course of ciprofloxacin as uncomplicated UTI. STD testing ordered. 04/03/22: The patient was admitted to the [facility] on q15 min checks (behavioral with suicide precautions) for safety. The patient will participate in group, recreational, and milieu therapies and will be offered additional individual and family sessions as clinically appropriate. -Continue ciprofloxacin 500mg po BID for 5 days per ED physician -Nicotine replacement ordered -Start Cymbalta 20mg qd Inventory Assets Strengths: willing to get treatment, owns homes but currently renting them out to others, resilient/trauma survivor, loves her children Needs: safety and stabilization, medication adjustment, additional coping skills, increased outpatient services, avoidance of substance use Suicide Risk Level Suicide Risk Level: High-Moderate (q15 min suicide checks) Suicide Risk Level Comments: High-Moderate due to severe depression with suicide attempt prior to admission but feels safe in the hospital, able to safety contract and agrees to let nursing/staff know should they develop plan, intent or feel unable to remain safe. Risk Factors Assessment : Yes Do You Have Access To A Gun?: No Health Problems: Yes Mental Health Diagnoses: Yes Substance Use Disorders: Yes Previous Attempt: Yes Family History of Suicide: Yes Previous Psychiatric Hospitalization: No Hopelessness: Yes Protective Factors Assessment Employed: No Supportive Family: Yes (her kids) Interval History Identifying Information PURNIMA TIPTON is a 56-year-old F who currently lives in [place] but recently has been residing and traveling around in her mobile camper alone, has a history of depression and PTSD, and was admitted on 04/02/22 19:05 on a 201 voluntary commitment for suicide attempt via walking into traffic multiple times and ongoing depression with SI. Chief Complaint "Today is a little better than yesterday". Review of Systems Sleep Information Total Hours of Sleep: 9.5 Sleep Comments: Patient awoke early with anxiety and received Vistaril at 0532 Meal Information Percent Meal Consumed - Breakfast: 90 Percent Meal Consumed - Lunch: 100 Percent Meal Consumed - Dinner: 100 Nutrition Comment: pt. requests low fat/no dairy diet; order rec'd Subjective Subjective Patient was seen & assessed and interval progress reviewed with treatment team nursing and social work. Attended groups last night. Irritable this morning but after coffee her mood improved and she was engaged with groups. No side effects from the duloxetine. Processed that she's experienced night sweats intermittently over the past few months and possibility this could worsen with Cymbalta so she'll monitor for this. Remains concerned that marijuana charges could lead to incarceration, she reached out to [place] to determine what if any charges may be occurring and if she can get her camper back. Having vaginal itching, consistent with prior yeast infections, so will order treatment for this. She also requests STD testing as she feels this will help her mood significantly as she worries about having gotten something from partner prior to hospitalization due to his "crack use". Physical Exam Psychiatric Orientation: alert and oriented x 3 Apperance: appropriately dressed and + disheveled Eye Contact: + fair eye contact Motor Behavior: no abnormal motor movements Speech: normal rate/rhythm/volume of speech Affect: + depressed affect and + anxious affect Mood: + depressed mood, + anxious mood and + irritable mood Thought Process: + circumstantial thought process Thought Content: reality based without delusions Suicidal Thoughts: denies suicidal plan and denies suicidal intent; + reports suicidal thoughts (intermittent) Homicidal Thoughts: denies homicidal thoughts Hallucinations: no auditory hallucinations and no visual hallucinations Cognition: remote memory grossly intact, attention grossly intact and language grossly intact; + recent memory not intact Estimated Intelligence: consistent with education level Insight: + limited insight Judgement: + limited judgement Vital Signs (Past 24 Hours) Last Vital Signs Temp 36.9 C 04/04/22 06:19 Pulse 90 04/04/22 06:20 Resp 16 04/04/22 06:19 BP 114/72 04/04/22 06:20 Pulse Ox 98 04/02/22 19:27 O2 Del Method 04/02/22 19:27 Results & Data ([facility]) Laboratory Results Laboratory Results - last 24 hr 04/02/22 14:41 U Amphetamines Confirm Cancelled U Methamphetamin Confrm Cancelled U Marijuana THC Carboxy Cancelled Drug Screen Comment Cancelled Current Inpatient Medications Current Inpatient Medications: Current Inpatient Medications Acetaminophen (Acetaminophen 325 Mg Tab) 650 mg PO Q4H PRN PRN Reason: Headache or Minor Fever Stop: 05/02/22 19:04 Al Hydrox/Mg Hydrox/Simethicone (Aluminum/Magnesium Susp 30 Ml Udc) 30 ml PO Q4H PRN PRN Reason: GI Upset Stop: 05/02/22 19:04 Bismuth Subsalicylate (Bismuth Subsalicylate Liqd 236 Ml) 15 ml PO PRN PRN PRN Reason: Loose Stool Stop: 05/02/22 19:04 Ciprofloxacin (Ciprofloxacin 500 Mg Tab) 500 mg PO BID [facility] Stop: 04/07/22 20:59 Last Admin: 04/04/22 08:49 Dose: 500 mg Duloxetine HCl (Duloxetine Hcl 20 Mg Cap) 20 mg PO QAM LETI Stop: 05/04/22 08:59 Last Admin: 04/04/22 08:49 Dose: 20 mg Hydroxyzine HCl (Hydroxyzine Hcl 25 Mg Tab) 50 mg PO HSZ PRN PRN Reason: Insomnia Stop: 05/02/22 19:04 Last Admin: 04/03/22 19:21 Dose: 50 mg Hydroxyzine HCl (Hydroxyzine Hcl 25 Mg Tab) 25 mg PO Q4H PRN PRN Reason: Anxiety Stop: 05/02/22 19:04 Last Admin: 10/04/22 05:32 Dose: 25 mg Magnesium Hydroxide (Magnesium Hydroxide Susp 30 Ml Udc) 30 ml PO DAILY PRN PRN Reason: Constipation Stop: 05/02/22 19:04 Miscellaneous (Remove Nicoderm Patch) 1 each N/A DAILY@0859 [facility] Stop: 05/04/22 08:58 Last Admin: 04/04/22 08:49 Dose: 1 each Nicotine (Nicotine 21 Mg/24 Hr Tdsy) 21 mg TD QAM [facility] Stop: 05/03/22 09:59 Last Admin: 04/04/22 08:49 Dose: 21 mg Nicotine Polacrilex (Nicotine Polacrilex 2 Mg Gum) 1 piece MT PRN PRN PRN Reason: cravings Stop: 05/03/22 09:46 Last Admin: 04/03/22 10:31 Dose: 1 piece Sodium Chloride (Sodium Chloride 0.65% Na Soln 45 Ml ([place])) 1 - 2 sprays NA PRN PRN PRN Reason: Nasal Dryness/Congestion Stop: 05/02/22 19:04
[2022-04-04] MEDS ORDERED: FLUCONAZOLE 50 MG TAB PO ONE (16:15)
[2022-04-05] MEDS: NICOTINE 21 MG/24 HR TDSY TD SCH (06:39)
[2022-04-05] MEDS: DULoxetine HCL 20 MG CAP PO SCH (08:36)
--- NOTE | 2022-04-05 11:28 | Psychiatric Progress Note ---
Date of Service April 05, 2022 Impression / Recommendations Impression The patient is a 56 year old with a history of depression and anxiety who was admitted for walking into traffic as a suicide attempt after having items stolen and in police response to her suicide attempt had her camper which serves as her current housing impounded due to having cannabis. Diagnostically consistent with unspecified mood disorder, differential including MDD vs complex PTSD vs substance-induced presentation (cannabis use and UDS screening positive for methamphetamine/amphetamine). The patient is deemed unstable and requires psychiatric hospitalization for diagnostic clarification, safety and st abilization, medication management and development of further coping skills. MNPR due to poor judgment/disrobing in front of others/high emotional reactivity. 04/05/22: Mood had been improving slightly but now acutely worsened with significant mood lability including increased irritability, anger and tearfulness in context of phone call with police liaison officer last night and her concerns about information that may have been shared with the officer at some point. Given her PTSD and now worsened concerns about mistrust, lack of housing and ongoing depression and anxiety she remains at elevated risk of harm to self. Tolerating initiation of Cymbalta, prefers slow, gradual titration given side effects to antidepressants in the past. Reviewed STD results that have come back so far which she was appreciative of. She was offered resource of talking with U implementation project manager which she would like to do. (1) Suicide attempt: (2) Depression with suicidal ideation: (3) Unspecified mood [affective] disorder: (4) UTI (urinary tract infection): (5) Beta thalassemia trait: (6) Stroke: (7) Cannabis use with anxiety disorder: Plan 04/05/22: Continue with current medications and treatment plan. 04/04/22: Continue with Cymbalta 20mg qd. Per discussion with pharmacist appropriate for 3 day course of ciprofloxacin as uncomplicated UTI. STD testing ordered. 04/03/22: The patient was [facility] to the [facility]) on q15 min checks (behavioral with suicide precautions) for safety. The patient will participate in group, recreational, and milieu therapies and will be offered additional individual and family sessions as clinically appropriate. -Continue ciprofloxacin 500mg po BID for 5 days per ED physician -Nicotine replacement ordered -Start Cymbalta 20mg qd Inventory Assets Strengths: willing to get treatment, owns homes but currently renting them out to others, resilient/trauma survivor, loves her children Needs: safety and stabilization, medication adjustment, additional coping skills, increased outpatient services, avoidance of substance use Suicide Risk Level Suicide Risk Level: High-Moderate (q15 min suicide checks) Suicide Risk Level Comments: High-Moderate due to severe depression with suicide attempt prior to admission with increased mood lability today but feels safe in the hospital, able to safety contract and agrees to let nursing/staff know should they develop plan, intent or feel unable to remain safe. Risk Factors Assessment : Yes Do You Have Access To A Gun?: No Health Problems: Yes Mental Health Diagnoses: Yes Substance Use Disorders: Yes Previous Attempt: Yes Family History of Suicide: Yes Previous Psychiatric Hospitalization: No Hopelessness: Yes Protective Factors Assessment Employed: No Supportive Family: Yes (her kids) Interval History Identifying Information SHELLY TIPTON is a 56-year-old F who currently lives in [place] but recently has been residing and traveling around in her mobile camper alone, has a history of depression and PTSD, and was admitted on 04/02/22 19:05 on a 201 voluntary commitment for suicide attempt via walking into traffic multiple times and ongoing depression with SI. Chief Complaint "I still need help but I thought this was a confidential space". Review of Systems Sleep Information Total Hours of Sleep: 6.25 Sleep Comments: Patient awoke early with anxiety and received Vistaril at 0532 Meal Information Percent Meal Consumed - Breakfast: 50 Percent Meal Consumed - Lunch: 100 Percent Meal Consumed - Dinner: 100 Nutrition Comment: pt. requests low fat/no dairy diet; order rec'd Subjective Subjective Patient was seen & assessed and interval progress reviewed with treatment team nursing and social work. Shelly received a call back from police last night and during this call the officer insinuated to her that a female he talked to at some point had asked him "Did she really have 8 lbs of marijuana in her camper?". She was very angry about this, as she feels she only shared this information with people at the hospital, and thinks someone must have shared this to the police noting that he likes to flirt with people and probably convinced someone to speak and that they may have shared it thinking it was funny. Validated her concerns and feelings and assured her that my goal remains to focus on helping her with her depression, anxiety and SI. Reviewed that she revoked her REGAN to the police last night and thus no one will confirm or deny if she is here should the police call again and no one will share any information now that it has been revoked. Discussed with her that per chart documentation and my discussion with staff no one from our unit shared any information with police last night after she signed the REGAN other than that the call was tr ansferred to unit phone when they called last night and no other information provided to them. She is unsure if she believes this, does not think police would have gotten this information when she was transferred to the hospital or at another point. Reviewed ways that I and the team could best support her given her feeling of mistrust and how we could best move forward, under the current circumstances, with a goal of continuing to focus on helping her feel safe and addressing her depression. She would like to continue to receive voluntary psychiatric treatment here and continues to feel comfortable with social work making referrals for outpatient services based on ROIs she has signed. She noted "I'm fine with them sharing information with other providers". She yelled at times during this discussion and swore using derogatory terms about evening staff but was able to calm down with discussion. She notes she doesn't like to experience anger because she can get too upset and doesn't like yelling or being angry. Reviewed her current treatment and she remains very depressed about not having her camper and fears about lack of housing if police do not turn this over. She stated the police liaison officer told her last night he will email her when he is done searching her camper so that she knows when/if she can have it back. Reviewed that nursing can supervise so she can check for this email. She has not noticed any side effects from the Cymbalta. Reports frustration at being offered prn medication last night after the phone call as she prefers to cope using non- pharmacological strategies. Praised this and encouraged her to continue engaging with groups to build on these coping strategies and she remains willing to try outpatient therapy. Physical Exam Psychiatric Orientation: alert and oriented x 3 Apperance: appropriately dressed and appropriately groomed Eye Contact: + fair eye contact Motor Behavior: no abnormal motor movements Speech: normal rate/rhythm/volume of speech Affect: + depressed affect, + anxious affect, + tearful affect, + labile affect and + angry affect Mood: + depressed mood, + anxious mood, + irritable mood and + angry mood Thought Process: clear/coherent thought process and + perseveration Thought Content: reality based without delusions Suicidal Thoughts: denies suicidal plan and denies suicidal intent; + reports suicidal thoughts (intermittent) Homicidal Thoughts: denies homicidal thoughts Hallucinations: no auditory hallucinations and no visual hallucinations Cognition: remote memory grossly intact, attention grossly intact and language grossly intact; + recent memory not intact Estimated Intelligence: consistent with education level Insight: + limited insight Judgement: + limited judgement Vital Signs (Past 24 Hours) Last Vital Signs Temp 36.8 C 04/05/22 06:00 Pulse 98 H 04/05/22 06:16 Resp 18 04/05/22 06:00 BP 133/84 04/05/22 06:16 Pulse Ox 98 04/02/22 19:27 O2 Del Method 04/02/22 19:27 Results & Data ([facility]) Laboratory Results Laboratory Results - last 24 hr 04/04/22 04/04/22 04/04/22 14:41 17:01 17:01 RPR Nonreactive C.trachomatis RNA Cancelled Hepatitis B Ab, Qual Pending HIV-1 RNA copies/mL Pending HIV-1 RNA logcopies/mL Pending N.gonorrhoeae RNA Cancelled Current Inpatient Medications Current Inpatient Medications: Current Inpatient Medications Acetaminophen (Acetaminophen 325 Mg Tab) 650 mg PO Q4H PRN PRN Reason: Headache or Minor Fever Stop: 05/02/22 19:04 Al Hydrox/Mg Hydrox/Simethicone (Aluminum/Magnesium Susp 30 Ml Udc) 30 ml PO Q4H PRN PRN Reason: GI Upset Stop: 05/02/22 19:04 Bismuth Subsalicylate (Bismuth Subsalicylate Liqd 236 Ml) 15 ml PO PRN PRN PRN Reason: Loose Stool Stop: 05/02/22 19:04 Duloxetine HCl (Duloxetine Hcl 20 Mg Cap) 20 mg PO QAM LETI Stop: 05/04/22 08:59 Last Admin: 04/05/22 08:36 Dose: 20 mg Hydroxyzine HCl (Hydroxyzine Hcl 25 Mg Tab) 50 mg PO HSZ PRN PRN Reason: Insomnia Stop: 05/02/22 19:04 Last Admin: 04/03/22 19:21 Dose: 50 mg Hydroxyzine HCl (Hydroxyzine Hcl 25 Mg Tab) 25 mg PO Q4H PRN PRN Reason: Anxiety Stop: 05/02/22 19:04 Last Admin: 04/03/22 05:32 Dose: 25 mg Magnesium Hydroxide (Magnesium Hydroxide Susp 30 Ml Udc) 30 ml PO DAILY PRN PRN Reason: Constipation Stop: 05/02/22 19:04 Miscellaneous (Remove Nicoderm Patch) 1 each N/A DAILY@0859 [facility] Stop: 05/04/22 08:58 Last Admin: 04/05/22 06:44 Dose: 1 each Nicotine (Nicotine 21 Mg/24 Hr Tdsy) 21 mg TD QAM LETI Stop: 05/03/22 09:59 Last Admin: 04/05/22 06:39 Dose: 21 mg Nicotine Polacrilex (Nicotine Polacrilex 2 Mg Gum) 1 piece MT PRN PRN PRN Reason: cravings Stop: 05/03/22 09:46 Last Admin: 04/03/22 10:31 Dose: 1 piece Sodium Chloride (Sodium Chloride 0.65% Na Soln 45 Ml ([place])) 1 - 2 sprays NA PRN PRN PRN Reason: Nasal Dryness/Congestion Stop: 05/02/22 19:04 Mental Health & Subst Abuse Tx Psychiatrist Name of Psychiatrist: Artemio Araiza PA-C Psychiatrist's Date of Appointment with Psychiatrist: 04/18/22 Time of Appointment with Psychiatrist: 9:00 AM Psychiatric Appointment Comment: [address] [facility], [place] [address] Therapist Name of Therapist: Mana Woods Therapist's Date of Therapist Appointment: 04/11/22 Time of Therapist Appointment: 6:30 PM Therapy Appointment Comment: [address] [facility], [address], [place] [address] 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
[2022-04-05] MEDS: MAGNESIUM HYDROXIDE SUSP 30 ML UDC PO PRN (17:53)
[2022-04-05] MEDS: hydrOXYzine HCl 25 MG TAB PO PRN (21:34)
[2022-04-06] MEDS: DULoxetine HCL 20 MG CAP PO SCH (08:15)
[2022-04-06] MEDS: NICOTINE 21 MG/24 HR TDSY TD SCH (08:15)
[2022-04-06] MEDS: MAGNESIUM HYDROXIDE SUSP 30 ML UDC PO PRN (08:16)
[2022-04-06 14:29] LABS: HIV 1 RNA PCR Copies/ML NOT DETECTED copies/mL (NOT DETECTED); HIV-1 RNA Log Copies/mL NOT DETECTED (NOT DETECTED)
--- NOTE | 2022-04-06 17:07 | Psychiatric Progress Note ---
Date of Service April 06, 2022 Impression / Recommendations Impression The patient is a 56 year old with a history of depression and anxiety who was admitted for walking into traffic as a suicide attempt after having items stolen and in police response to her suicide attempt had her camper which serves as her current housing impounded due to having cannabis. Diagnostically consistent with unspecified mood disorder, differential including MDD vs complex PTSD vs substance-induced presentation (cannabis use and UDS screening positive for methamphetamine/amphetamine). The patient is deemed unstable and requires psychiatric hospitalization for diagnostic clarification, safety and st abilization, medication management and development of further coping skills. MNPR due to poor judgment/disrobing in front of others early in her stay/ongoing high emotional reactivity and significant periods of irritability. 04/06/22: Increased depression, irritability and mood lability today with statements of SI if she were to leave the hospital due to ongoing psychosocial stressors with lack of social support and lack of housing. At this point may be slight malingering/secondary gain component due to lack of housing and somewhat contingent statement of SI however, she does also have many risk factors for suicide including homelessness and lack of social support for which ongoing hospitalization is deemed appropriate to continue to improve her coping skills, emotional regulation skills and for ongoing treatment of her depression. Once modifiable risk factors have been optimized, goal will be for discharge with any many potential psychosocial resources as possible, unfortunately there are not many options locally. She prefers to continue with low dose Cymbalta given prior medication side effects, consider further titration tomorrow if she consents to this. (1) Suicide attempt: (2) Depression with suicidal ideation: (3) Unspecified mood [affective] disorder: (4) UTI (urinary tract infection): (5) Beta thalassemia trait: (6) Stroke: (7) Cannabis use with anxiety disorder: Plan 04/06/22: Consider further increase of Cymbalta tomorrow to 40mg qd. Continue to target psychosocial stressors as well as depression symptoms. 04/05/22: Continue with current medications and treatment plan. 04/04/22: Continue with Cymbalta 20mg qd. Per discussion with pharmacist appropriate for 3 day course of ciprofloxacin as uncomplicated UTI. STD testing ordered. 04/03/22: The patient was admitted to the [facility] ([facility] mental health unit) on q15 min checks (behavioral with suicide precautions) for safety. The patient will participate in group, recreational, and milieu therapies and will be offered additional individual and family sessions as clinically appropriate. -Continue ciprofloxacin 500mg po BID for 5 days per ED physician -Nicotine replacement ordered -Start Cymbalta 20mg qd Inventory Assets Strengths: willing to get treatment, owns homes but currently renting them out to others, resilient/trauma survivor, loves her children Needs: safety and stabilization, medication adjustment, additional coping skills, increased outpatient services, avoidance of substance use Suicide Risk Level Suicide Risk Level: High-Moderate (q15 min suicide checks) (High-Moderate due to severe depression with suicide attempt prior to admission with increased mood lability and psychosocial socials but feels safe in the hospital, able to safety contract and agrees to let nursing/staff know should they develop plan, intent or feel unable to remain safe. ) Risk Factors Assessment : Yes Do You Have Access To A Gun?: No Health Problems: Yes Mental Health Diagnoses: Yes Substance Use Disorders: Yes Previous Attempt: Yes Family History of Suicide: Yes Previous Psychiatric Hospitalization: No Hopelessness: Yes Protective Factors Assessment Employed: No Supportive Family: Yes (her kids) Interval History Identifying Information PURNIMA TIPTON is a 56-year-old F who currently lives in [place] but recently has been residing and traveling around in her mobile camper alone, has a history of depression and PTSD, and was admitted on 04/02/22 19:05 on a 201 voluntary commitment for suicide attempt via walking into traffic multiple times and o ngoing depression with SI. Chief Complaint "I do not think I can handle things I might as well go out in the steven and freeze to that is the best option I have". Review of Systems Sleep Information Total Hours of Sleep: 8.25 Sleep Comments: Patient awoke early with anxiety and received Vistaril at 0532 Meal Information Percent Meal Consumed - Breakfast: 100 Percent Meal Consumed - Lunch: 100 Percent Meal Consumed - Dinner: 75 Nutrition Comment: pt. requests low fat/no dairy diet; order rec'd Subjective Subjective Patient was seen & assessed and interval progress reviewed with treatment team nursing and social work. Purnima initially reports her mood is "alright" however becomes increasingly tearful and states ongoing suicidal ideation related to the challenges of housing when we discussed that that is not something we are going to be able to secure for outside of the hospital. She is frustrated by this as she feels that she cannot go to a snf and has no other options and therefore is better off "going into the steven and freezing to ". He is very tearful and understandably expresses she feels "extremely hopeless" due to no longer having her camper, potential legal charges, feeling like she cannot handle everything at this point in her life. Reflects on how "I used to rage as a defense for so many years" that she has pushed many people and supports away and thus is now struggling to figure out how to her rely on others and seek support. She denies any side effects from the medication but also expresses frustration that it will take a while for the medication to work. Remains in desire of keeping the medication at a low dose given previous side effects of SSRIs. Physical Exam Psychiatric Orientation: alert and oriented x 3 Apperance: appropriately dressed and + disheveled Eye Contact: + fair eye contact Motor Behavior: no abnormal motor movements Speech: normal rate/rhythm/volume of speech Affect: + depressed affect, + anxious affect, + tearful affect, + labile affect and + irritable affect Mood: + depressed mood, + anxious mood, + irritable mood and + angry mood Thought Process: + perseveration Thought Content: reality based without delusions Suicidal Thoughts: denies suicidal intent; + reports suicidal thoughts and + reports suicidal plan (not in hospital but to go in steven and freeze outside of hospital) Homicidal Thoughts: denies homicidal thoughts Hallucinations: no auditory hallucinations and no visual hallucinations Cognition: remote memory grossly intact, attention grossly intact and language grossly intact; + recent memory not intact Estimated Intelligence: consistent with education level Insight: + limited insight Judgement: + limited judgement Vital Signs (Past 24 Hours) Last Vital Signs Temp 36.4 C 04/06/22 06:29 Pulse 95 H 04/06/22 06:29 Resp 18 04/06/22 06:29 BP 112/78 04/06/22 06:30 Pulse Ox 98 04/02/22 19:27 O2 Del Method 04/02/22 19:27 Results & Data ([facility]) Laboratory Results Laboratory Results - last 24 hr 04/04/22 17:01 Hepatitis B Ab, Qual NON-REACTIVE HIV-1 RNA copies/mL NOT DETECTED HIV-1 RNA logcopies/mL NOT DETECTED Current Inpatient Medications Current Inpatient Medications: Current Inpatient Medications Acetaminophen (Acetaminophen 325 Mg Tab) 650 mg PO Q4H PRN PRN Reason: Headache or Minor Fever Stop: 05/02/22 19:04 Al Hydrox/Mg Hydrox/Simethicone (Aluminum/Magnesium Susp 30 Ml Udc) 30 ml PO Q4H PRN PRN Reason: GI Upset Stop: 05/02/22 19:04 Bismuth Subsalicylate (Bismuth Subsalicylate Liqd 236 Ml) 15 ml PO PRN PRN PRN Reason: Loose Stool Stop: 05/02/22 19:04 Duloxetine HCl (Duloxetine Hcl 20 Mg Cap) 20 mg PO QAM [facility] Stop: 05/04/22 08:59 Last Admin: 04/06/22 08:15 Dose: 20 mg Hydroxyzine HCl (Hydroxyzine Hcl 25 Mg Tab) 50 mg PO HSZ PRN PRN Reason: Insomnia Stop: 05/02/22 19:04 Last Admin: 04/05/22 21:34 Dose: 50 mg Hydroxyzine HCl (Hydroxyzine Hcl 25 Mg Tab) 25 mg PO Q4H PRN PRN Reason: Anxiety Stop: 05/02/22 19:04 Last Admin: 04/03/22 05:32 Dose: 25 mg Magnesium Hydroxide (Magnesium Hydroxide Susp 30 Ml Udc) 30 ml PO DAILY PRN PRN Reason: Constipation Stop: 05/02/22 19:04 Last Admin: 04/06/22 08:16 Dose: 30 ml Miscellaneous (Remove Nicoderm Patch) 1 each N/A DAILY@0859 [facility] Stop: 05/04/22 08:58 Last Admin: 04/06/22 11:39 Dose: 1 each Nicotine (Nicotine 21 Mg/24 Hr Tdsy) 21 mg TD QAM [facility] Stop: 05/03/22 09:59 Last Admin: 04/06/22 08:15 Dose: 21 mg Nicotine Polacrilex (Nicotine Polacrilex 2 Mg Gum) 1 piece MT PRN PRN PRN Reason: cravings Stop: 05/03/22 09:46 Last Admin: 04/03/22 10:31 Dose: 1 piece Sodium Chloride (Sodium Chloride 0.65% Na Soln 45 Ml (Page)) 1 - 2 sprays NA PRN PRN PRN Reason: Nasal Dryness/Congestion Stop: 05/02/22 19:04 Mental Health & Subst Abuse Tx Psychiatrist Name of Psychiatrist: Artemio Araiza PA-C Psychiatrist's Date of Appointment with Psychiatrist: 04/18/22 Time of Appointment with Psychiatrist: 9:00 AM Psychiatric Appointment Comment: [address] [place] [address] [place] [address] Therapist Name of Therapist: Mana Woods Therapist's Date of Therapist Appointment: 04/11/22 Time of Therapist Appointment: 6:30 PM Therapy Appointment Comment: [address] [facility], [address], [place] [address] Risk Control Field Representative Name of Risk Control Field Representative: [employer] Phone Number for Risk Control Field Representative: [phone] Case Management Appointment Comment: Someone from the base service unit will follow up with you directly. Post Discharge Appointments Contact Information Discharge
[2022-04-06] MEDS ORDERED: POLYETHYLENE (MIRALAX) 17 GM PACK PO PRN (17:15)
[2022-04-06] MEDS ORDERED: DOCUSATE SODIUM 100 MG CAP PO PRN (17:18)
[2022-04-07] MEDS: hydrOXYzine HCl 25 MG TAB PO PRN ×2 (06:56→14:44)
[2022-04-07] MEDS: DULoxetine HCL 20 MG CAP PO SCH (09:02)
[2022-04-07] MEDS: NICOTINE 21 MG/24 HR TDSY TD SCH (09:07)
--- NOTE | 2022-04-07 11:29 | Psychiatric Progress Note ---
Date of Service April 07, 2022 Impression / Recommendations Impression The patient is a 56 year old with a history of depression and anxiety who was admitted for walking into traffic as a suicide attempt after having items stolen and in police response to her suicide attempt had her camper which serves as her current housing impounded due to having cannabis. Diagnostically consistent with unspecified mood disorder, differential including MDD vs complex PTSD vs substance-induced presentation (cannabis use and UDS screening positive for methamphetamine/amphetamine). 04/06/22: improving (1) Suicide attempt: (2) Depression with suicidal ideation: (3) Unspecified mood [affective] disorder: (4) UTI (urinary tract infection): (5) Beta thalassemia trait: (6) Stroke: (7) Cannabis use with anxiety disorder: Plan 04/07/22: continue current meds and treatment plan. 04/06/22: Consider further increase of Cymbalta tomorrow to 40mg qd. Continue to target psychosocial stressors as well as depression symptoms. 04/05/22: Continue with current medications and treatment plan. 04/04/22: Continue with Cymbalta 20mg qd. Per discussion with pharmacist appropriate for 3 day course of ciprofloxacin as uncomplicated UTI. STD testing ordered. 04/03/22: The patient was admitted to the [facility] ([facility] inpatient mental health unit) on q15 min checks (behavioral with suicide precautions) for safety. The patient will participate in group, recreational, and milieu therapies and will be offered additional individual and family sessions as clinically appropriate. -Continue ciprofloxacin 500mg po BID for 5 days per ED physician -Nicotine replacement ordered -Start Cymbalta 20mg qd Inventory Assets Strengths: willing to get treatment, owns homes but currently renting them out to others, resilient/trauma survivor, loves her children Needs: safety and stabilization, medication adjustment, additional coping skills, increased outpatient services, avoidance of substance use Suicide Risk Level Suicide Risk Level: Moderate (q15 min suicide checks) Risk Factors Assessment : Yes Do You Have Access To A Gun?: No Health Problems: Yes Mental Health Diagnoses: Yes Substance Use Disorders: Yes Previous Attempt: Yes Family History of Suicide: Yes Previous Psychiatric Hospitalization: No Hopelessness: Yes Protective Factors Assessment Employed: No Supportive Family: Yes (her kids) Interval History Identifying Information PURNIMA TIPTON is a 56-year-old F who currently lives in [place] but recently has been residing and traveling around in her mobile camper alone, has a history of depression and PTSD, and was admitted on 04/02/22 19:05 on a 201 voluntary commitment for suicide attempt via walking into traffic multiple times and ongoing depression with SI. Chief Complaint "all of my problems are going to be there when I leave." Review of Systems Sleep Information Total Hours of Sleep: 6.25 Meal Information Percent Meal Consumed - Breakfast: 100 Percent Meal Consumed - Lunch: 100 Percent Meal Consumed - Dinner: 100 Subjective Subjective Patient was seen & assessed and interval progress reviewed with nursing and social work. Patient was unable to safety contract yesterday given that it's unclear how soon her camper will be released. Her family is aware of her hospitalization and willing to help some with transportation so she is feeling more hopeful. Physical Exam Psychiatric Orientation: alert and oriented x 3 Apperance: appropriately dressed and appropriately groomed Eye Contact: + fair eye contact Motor Behavior: no abnormal motor movements Speech: normal rate/rhythm/volume of speech Affect: + depressed affect and + anxious affect Mood: + anxious mood Thought Process: clear/coherent thought process and + circumstantial thought process Thought Content: reality based without delusions Suicidal Thoughts: denies suicidal thoughts Homicidal Thoughts: denies homicidal thoughts Hallucinations: no auditory hallucinations and no visual hallucinations Cognition: attention grossly intact and language grossly intact Vital Signs (Past 24 Hours) Last Vital Signs Temp 36.8 C 04/07/22 06:40 Pulse 80 04/07/22 06:41 Resp 16 04/07/22 06:40 BP 123/80 04/07/22 06:41 Pulse Ox 98 04/02/22 19:27 O2 Del Method 04/02/22 19:27 Results & Data ([facility]) Laboratory Results Laboratory Results - last 24 hr 04/04/22 04/06/22 17:01 15:35 C.trachomatis RNA Pending Hepatitis B Ab, Qual NON-REACTIVE HIV-1 RNA copies/mL NOT DETECTED HIV-1 RNA logcopies/mL NOT DETECTED N.gonorrhoeae RNA Pending Current Inpatient Medications Current Inpatient Medications: Current Inpatient Medications Acetaminophen (Acetaminophen 325 Mg Tab) 650 mg PO Q4H PRN PRN Reason: Headache or Minor Fever Stop: 05/02/22 19:04 Al Hydrox/Mg Hydrox/Simethicone (Aluminum/Magnesium Susp 30 Ml Udc) 30 ml PO Q4H PRN PRN Reason: GI Upset Stop: 05/02/22 19:04 Bismuth Subsalicylate (Bismuth Subsalicylate Liqd 236 Ml) 15 ml PO PRN PRN PRN Reason: Loose Stool Stop: 05/02/22 19:04 Docusate Sodium (Docusate Sodium 100 Mg Cap) 100 mg PO BID PRN PRN Reason: Constipation Stop: 05/06/22 17:17 Last Admin: 04/06/22 17:51 Dose: 100 mg Duloxetine HCl (Duloxetine Hcl 20 Mg Cap) 20 mg PO QAM [facility] Stop: 05/04/22 08:59 Last Admin: 04/07/22 09:02 Dose: 20 mg Hydroxyzine HCl (Hydroxyzine Hcl 25 Mg Tab) 50 mg PO HSZ PRN PRN Reason: Insomnia Stop: 05/02/22 19:04 Last Admin: 04/05/22 21:34 Dose: 50 mg Hydroxyzine HCl (Hydroxyzine Hcl 25 Mg Tab) 25 mg PO Q4H PRN PRN Reason: Anxiety Stop: 05/02/22 19:04 Last Admin: 04/07/22 06:56 Dose: 25 mg Magnesium Hydroxide (Magnesium Hydroxide Susp 30 Ml Udc) 30 ml PO DAILY PRN PRN Reason: Constipation Stop: 05/02/22 19:04 Last Admin: 04/06/22 08:16 Dose: 30 ml Miscellaneous (Remove Nicoderm Patch) 1 each N/A DAILY@0859 [facility] Stop: 05/04/22 08:58 Last Admin: 04/07/22 09:06 Dose: 1 each Nicotine (Nicotine 21 Mg/24 Hr Tdsy) 21 mg TD QAM [facility] Stop: 05/03/22 09:59 Last Admin: 04/07/22 09:07 Dose: 21 mg Nicotine Polacrilex (Nicotine Polacrilex 2 Mg Gum) 1 piece MT PRN PRN PRN Reason: cravings Stop: 05/03/22 09:46 Last Admin: 04/03/22 10:31 Dose: 1 piece Polyethylene Glycol (Polyethylene (Miralax) 17 Gm Pack) 17 gm PO DAILY PRN PRN Reason: Constipation Stop: 05/06/22 17:14 Last Admin: 04/06/22 17:51 Dose: 17 gm Sodium Chloride (Sodium Chloride 0.65% Na Soln 45 Ml ([place])) 1 - 2 sprays NA PRN PRN PRN Reason: Nasal Dryness/Congestion Stop: 05/02/22 19:04 Zinc Acetate/Diphenhydramine (Diphenhydramine 2%/Zinc 0.1% Cream 28gm Tube) 1 appln EXT BID PRN PRN Reason: rash/itchiness Stop: 05/06/22 17:17 Last Admin: 04/06/22 21:06 Dose: 1 appln Mental Health & Subst Abuse Tx Psychiatrist Name of Psychiatrist: Artemio Araiza PA-C Psychiatrist's Date of Appointment with Psychiatrist: 04/18/22 Time of Appointment with Psychiatrist: 9:00 AM Psychiatric Appointment Comment: [address] [place] [id number] Therapist Name of Therapist: Mana Woods Therapist's Date of Therapist Appointment: 04/11/22 Time of Therapist Appointment: 6:30 PM Therapy Appointment Comment: [address] [facility], [address], [place] [address] Chemical Strength Tester Name of Chemical Strength Tester: [employer] Phone Number for Chemical Strength Tester: [phone] Case Management Appointment Comment: Someone from the base service unit will follow up with you directly. Post Discharge Appointments Contact Information Discharge
[2022-04-07 11:45] LABS: GC (Neis gonorrhoeae) RNA Not Detected (NotDetected)
[2022-04-07] MEDS ORDERED: HYDROCORTISONE 1% CRM 30 GM TUBE EXT PRN (14:56)
[2022-04-08] MEDS: hydrOXYzine HCl 25 MG TAB PO PRN (05:42)
[2022-04-08] MEDS: NICOTINE 21 MG/24 HR TDSY TD SCH (08:20)
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
[2022-04-08] MEDS ORDERED: DULoxetine HCL 20 MG CAP PO SCH (09:00)
== END 2022-04-08 10:00 | disposition home or self-care (01) | DRG 881 ==
LOC: ED 14:22 → 3S 19:05 → SUATTDRO 19:05 → 3S 20:49
DX: T14.91XA Suicide attempt, initial encounter; F12.980 Cannabis use, unspecified with anxiety disorder; N39.0 Urinary tract infection, site not specified; D56.3 Thalassemia minor; F32.A Depression, unspecified; I63.9 Cerebral infarction, unspecified; Z88.1 Allergy status to other antibiotic agents